=== PATIENT | male | born 1990 ===

== ENCOUNTER 2018-12-04 11:18 | Emergency (ER) | payer SELFPAY ==
[2018-12-04 11:34] VITALS: BMI 29.7
--- NOTE | 2018-12-04 11:57 | ED PDOC ---
Arrival/HPI - General Historian: Patient, Police - History of Present Illness Narrative History of Present Illness (Text): 12/04/18 11:37 28 year old Male with no significant PMH presents to the emergency department brought in by [employer] after they [place]. Patient denies any suicidal or homicidal ideation. Patient exhibits bizarre behavior at bedside. He endorses smoking marijuana. Patient denies any fevers, chills, headache, dizziness, chest pain, shortness of breath, dyspnea on exertion, cough, abdominal pain, nausea, vomiting, diarrhea, back pain, neck pain, or any other complaints. Time/Duration: Prior to Arrival Symptom Onset: Gradual Activities at Onset: Other (Running) Context: Other (Lightrail tracks) <Lacey Washburn - Last Filed: 12/05/18 00:27> <Lopez Walker - Last Filed: 12/05/18 04:32> - General Chief Complaint: Psychiatric Evaluation Time Seen by Provider: 12/04/18 11:21 Past Medical History - Provider Review Nursing Documentation Reviewed: Yes - Infectious Disease Hx of Infectious Diseases: None - Cardiac Hx Hypertension: No - Pulmonary Hx Tuberculosis: No - Neurological Hx Seizures: No - Hematological/Oncological Hx Cancer: No - Genitourinary/Gynecological Hx Sexually Transmitted Diseases: No - Psychiatric Hx Substance Use: Yes - Anesthesia Hx Anesthesia: No Hx Anesthesia Reactions: No Hx Malignant Hyperthermia: No <Lacey Washburn - Last Filed: 12/05/18 00:27> Family/Social History - Physician Review Nursing Documentation Reviewed: Yes Family/Social History: Unknown Family HX Smoking Status: Heavy Smoker > 10 Cigarettes Daily Hx Alcohol Use: Yes Hx Substance Use: Yes Substance used: Marijuana <Lacey Washburn - Last Filed: 12/05/18 00:27> Allergies/Home Meds <Lacey Washburn - Last Filed: 12/05/18 00:27> <Lopez Walker - Last Filed: 12/05/18 04:32> Allergies/Adverse Reactions: Allergies No Known Allergies Allergy (Verified 06/21/16 20:14) Home Medications: Home Meds Medication Instructions Recorded Confirmed Unobtainable 08/19/16 12/05/18 Review of Systems - Physician Review All systems were reviewed & negative as marked: Yes - Review of Systems Constitutional: absent: Fevers Respiratory: absent: SOB, Cough Cardiovascular: absent: Chest Pain Gastrointestinal: absent: Abdominal Pain, Diarrhea, Nausea, Vomiting Genitourinary Male: absent: Dysuria, Urinary Output Changes Musculoskeletal: absent: Back Pain, Neck Pain Skin: absent: Rash Neurological: absent: Headache, Dizziness Psychiatric: absent: Anxiety, Suicidal Ideation <Lacey Washburn - Last Filed: 12/05/18 00:27> Physical Exam Vital Signs Reviewed: Yes Vital Signs Temp Pulse Resp BP Pulse Ox 12/04/18 11:34 98.8 F 108 H 16 141/77 100 Temperature: Afebrile Blood Pressure: Normal Pulse: Regular Respiratory Rate: Normal Appearance: Positive for: Well-Appearing, Non-Toxic, Comfortable Pain Distress: None Mental Status: Positive for: Alert and Oriented X 3 - Systems Exam Head: Present: Atraumatic, Normocephalic Extroacular Muscles: Present: EOMI Conjunctiva: Present: Normal Mouth: Present: Moist Mucous Membranes Respiratory/Chest: Present: Clear to Auscultation, Good Air Exchange. No: Respiratory Distress, Accessory Muscle Use Cardiovascular: Present: Regular Rate and Rhythm, Normal S1, S2. No: Murmurs Abdomen: No: Tenderness, Distention, Peritoneal Signs Upper Extremity: Present: Normal Inspection. No: Cyanosis, Edema Lower Extremity: Present: Normal Inspection. No: Edema Neurological: Present: GCS=15, Speech Normal Skin: Present: Warm, Dry, Normal Color. No: Rashes Psychiatric: Present: Alert, Oriented x 3, Other (bizarre behavior ) <Lacey Washburn - Last Filed: 12/05/18 00:27> Vital Signs Temp Pulse Resp BP Pulse Ox 12/04/18 16:58 98.2 F 89 20 142/88 100 12/04/18 11:34 98.8 F 108 H 16 141/77 100 <Lopez Walker - Last Filed: 12/05/18 04:32> Medical Decision Making ED Course and Treatment: 12/04/18 13:49 Patient is nontoxic well-appearing in no distress vital signs are stable. CBC Wbc:11.4 CMP WNL Tylenol WNL Salicylate WNL Alcohol level WNL Urine drug screen + marijuana UA; wnl ekg: Sinus rhythm with sinus arrhythmia at 77 bpm normal axis no ST elevations QTC 396 pt is medically cleared for PES evaluation/ psychiatric transfer/admission Patient was seen and evaluated by PES screener: christina 12/04/18 13:27 Patient became agitated in the ER and was trying to elope from the ER. Patient was sedated with Haldol and Ativan. Restraints were ordered. After medications the patient became more cooperative and did not need to be restrained. 12/04/18 17:15 Patient reassessment: Patient resting comfortably no distress with stable vital signs 12/04/18 19:22 Patient is awake and again agitated spitting at staff. 5 Haldol and 2 of Ativan ordered. restraints ordered. plan discussed with dr. walker. restraints were removed shortly after haldol and ativan given and patient non threatening. 12/04/18 21:46 pt sleeping; no distress. vitals stable. 12/04/18 22:57 pt reassessment; pt sleeping; no distress. 12/05/18 00:27 pt reassessment; sleeping; no distress. case signed out to dr. walker pending [facility] eval, re-eval and disposition. <Lacey Washburn T - Last Filed: 12/05/18 00:27> ED Course and Treatment: 12/05/18 02:01 [facility] screener present in Emergency department. States pt is too difficult to arouse to properly evaluate at this time. States [facility] screeners will return at a later time to evaluate when pt is awake/alert. 12/05/18 07:00 Case endorsed to /pending [facility] screener evaluation/final disposition - Lab Interpretations Lab Results: Total Bilirubin 0.3 mg/dL (0.2-1.3) 12/04/18 11:40 AST 44 U/L (17-59) 12/04/18 11:40 ALT 25 U/L (7-56) 12/04/18 11:40 Alkaline Phosphatase 59 U/L (38-126) 12/04/18 11:40 Total Protein 8.3 g/dL (5.8-8.3) 12/04/18 11:40 Albumin 4.6 g/dL (3.0-4.8) 12/04/18 11:40 Globulin 3.7 gm/dL 12/04/18 11:40 Albumin/Globulin Ratio 1.3 (1.1-1.8) 12/04/18 11:40 Urine Color Yellow (YELLOW) 12/04/18 13:05 Urine Appearance Clear (CLEAR) 12/04/18 13:05 Urine pH 6.5 (4.7-8.0) 12/04/18 13:05 Ur Specific [place] 1.020 (1.005-1.035) 12/04/18 13:05 Urine Protein Trace mg/dL (<30 mg/dL) H 12/04/18 13:05 Urine Glucose (UA) Negative mg/dL (NEGATIVE) 12/04/18 13:05 Urine Ketones Negative mg/dL (NEGATIVE) 12/04/18 13:05 Urine Blood Negative (NEGATIVE) 12/04/18 13:05 Urine Nitrate Negative (NEGATIVE) 12/04/18 13:05 Urine Bilirubin Negative (NEGATIVE) 12/04/18 13:05 Urine Urobilinogen 0.2 E.U./dL (<1 E.U./dL) 12/04/18 13:05 Ur Leukocyte Esterase Negative Roni/uL (NEGATIVE) 12/04/18 13:05 Urine RBC 0 - 2 /hpf (0-2) 12/04/18 13:05 Urine WBC 1 - 3 /hpf (0-6) 12/04/18 13:05 Ur Epithelial Cells None /hpf (0-5) 12/04/18 13:05 Urine Bacteria Few /hpf (NONE) 12/04/18 13:05 - RAD Interpretation Radiology Orders: 12/04/18 13:51 CHEST PORTABLE [RAD] Stat - Medication Orders Current Medication Orders: Discontinued Medications Haloperidol Lactate (Haldol) 5 mg IM STAT STA; Protocol Stop: 12/04/18 13:28 Last Admin: 12/04/18 13:42 Dose: 5 mg IM Administration Charges Document 12/04/18 13:42 EQ (Rec: 12/04/18 13:42 EQ [id number]) Injection Site MAR Injection Site Left Deltoid Charges for Administration # of IM Administrations 1 Haloperidol Lactate (Haldol) 5 mg IM STAT STA; Protocol Stop: 12/04/18 19:22 Last Admin: 12/04/18 19:36 Dose: 5 mg IM Administration Charges Document 12/04/18 19:36 AD (Rec: 12/04/18 19:36 AD [id number]) Injection Site MAR Injection Site Left Deltoid Charges for Administration # of IM Administrations 1 Lorazepam (Ativan) 2 mg IM ONCE ONE; Protocol Stop: 12/04/18 13:28 Last Admin: 12/04/18 13:41 Dose: 2 mg IM Administration Charges Document 12/04/18 13:41 EQ (Rec: 12/04/18 13:42 EQ [id number]) Injection Site MAR Injection Site Left Deltoid Charges for Administration # of IM Administrations 1 Lorazepam (Ativan) 2 mg IM ONCE ONE; Protocol Stop: 12/04/18 19:22 Last Admin: 12/04/18 19:36 Dose: 2 mg IM Administration Charges Document 12/04/18 19:36 AD (Rec: 12/04/18 19:36 AD [id number]) Injection Site MAR Injection Site Right Deltoid Charges for Administration # of IM Administrations 1 <Lopez Walker - Last Filed: 12/05/18 04:32> - PA / [employer] / Resident Statement SHERINE has reviewed & agrees with the documentation as recorded. - Scribe Statement The provider has reviewed the documentation as recorded by the Qasim Conteh training with Lazaro. All medical record entries made by the Thompsonibbruce were at my direction and personally dictated by me. I have reviewed the chart and agree that the record accurately reflects my personal performance of the history, physical exam, medical decision making, and the department course for this patient. I have also personally directed, reviewed, and agree with the discharge instructions and disposition. <Lacey Washburn - Last Filed: 12/05/18 00:27> - PA / [employer] / Resident Statement SHERINE has reviewed & agrees with the documentation as recorded. SHERINE has examined the patient and agrees with the treatment plan. <Lopez Walker - Last Filed: 12/05/18 04:32> Disposition/Present on Arrival - Present on Arrival Any Indicators Present on Arrival: No History of DVT/PE: No History of Uncontrolled Diabetes: No Urinary Catheter: No History of Decub. Ulcer: No History Surgical Site Infection Following: None - Disposition Have Diagnosis and Disposition been Completed?: Yes Disposition Time: 00:29 <Lacey Washburn - Last Filed: 12/05/18 00:27> - Present on Arrival Any Indicators Present on Arrival: No - Disposition Have Diagnosis and Disposition been Completed?: No Disposition Time: 07:00 <Lopez Walker - Last Filed: 12/05/18 04:32> - Disposition Diagnosis: Bipolar 1 disorder Condition: STABLE Forms: As Seen on TV (Tajik)
[2018-12-04 11:58] LABS: BASO # 0.04 K/mm3 (0.0-2.0); BASO % 0.3 % (0.0-3.0); EOS # 0.2 (0.0-0.7); EOS % 1.5 % (1.5-5.0); HEMOGLOBIN 13.8 g/dL (14.0-18.0); LYMPH # 3.1 (1.2-3.4); LYMPH % 27.3 % (22.0-35.0); MEAN CELL VOLUME 87.3 fl (80.0-105.0); MEAN CORPUSCULAR HEMOGLOBIN 28.2 pg (25.0-35.0); MEAN CORPUSCULAR HGB CONC 32.3 g/dl (31.0-37.0); MEAN PLATELET VOLUME 9.4 fl (7.0-11.0); MONO # 0.9 (0.1-0.6); MONO % 7.7 % (1.0-6.0); RBC 4.89 10^6/uL (3.5-6.1); RED CELL DISTRIBUTION WIDTH 13.9 % (11.5-14.5); WHITE BLOOD COUNT 11.4 10^3/uL (4.5-11.0)
[2018-12-04 12:03] LABS: ACETAMINOPHEN < 10.0 ug/ml (10.0-20.0); ALB/GLOB RATIO 1.3 (1.1-1.8); ALBUMIN 4.6 g/dL (3.0-4.8); ALT/SGPT 25 U/L (7-56); AST/SGOT 44 U/L (17-59); BLOOD UREA NITROGEN 14 mg/dL (7-21); CALCIUM 10.2 mg/dL (8.4-10.5); GFR NON-AFRICAN AMERICAN > 60; SALICYLATE < 1 mg/dL (2.0-20.0)
[2018-12-04 13:36] LABS: PH,URINE 6.5 (4.7-8.0); URINE APPEARANCE CLEAR (CLEAR); URINE BILIRUBIN NEGATIVE (NEGATIVE); URINE BLOOD NEGATIVE (NEGATIVE); URINE COLOR YELLOW (YELLOW); URINE GLUCOSE (UA) NEGATIVE (NEGATIVE); URINE LEUKOCYTE ESTERASE NEGATIVE Leu/uL (NEGATIVE); URINE PROTEIN TRACE mg/dL (<30 mg/dL); URINE UROBILINOGEN 0.2 E.U./dL (<1 E.U./dL)
[2018-12-04 13:38] LABS: URINE BACTERIA FEW /hpf
[2018-12-04 13:39] LABS: URINE RBC 0 - 2 /hpf (0-2)
[2018-12-04 13:48] LABS: BARBITURATES, UR NEGATIVE (NEGATIVE); BENZODIAZEPINES, UR NEGATIVE (NEGATIVE); OPIATES, UR NEGATIVE (NEGATIVE); PHENCYCLIDINE, UR NEGATIVE (NEGATIVE)
--- NOTE | 2018-12-04 14:31 | RAD ---
Date of service: 12/04/2018 HISTORY: pes eval COMPARISON: 08/19/2016 FINDINGS: LUNGS: No active pulmonary disease. PLEURA: No significant pleural effusion identified, no pneumothorax apparent. CARDIOVASCULAR: No atherosclerotic calcification present Normal. OSSEOUS STRUCTURES: No significant abnormalities. VISUALIZED UPPER ABDOMEN: Normal. OTHER FINDINGS: None. IMPRESSION: No active disease.
--- NOTE | 2018-12-04 23:00 | CARD ---
APPROVED REPORT Date of service: 12/04/2018 EKG Measurement Heart [id number] <Conclusion> Sinus rhythm with marked sinus arrhythmia Otherwise normal ECG
--- NOTE | 2018-12-05 07:12 | ED PDOC ---
Physical Exam - Physical Exam Narrative Physical Exam (Text): 12/05/18 07:11 Patient signed out to me by Dr. Heredia. Pending [facility] screening. Pt has been medically cleared. Vital Signs Temp Pulse Resp BP Pulse Ox 12/05/18 06:22 79 18 137/64 100 12/05/18 01:30 89 18 132/72 100 12/04/18 21:28 97.8 F 52 L 18 115/70 100 12/04/18 16:58 98.2 F 89 20 142/88 100 12/04/18 11:34 98.8 F 108 H 16 141/77 100 <Mark Soto - Last Filed: 12/05/18 18:46> Vital Signs Temp Pulse Resp BP Pulse Ox 12/05/18 16:00 98.2 F 82 18 129/59 L 99 12/05/18 12:00 72 16 118/66 99 12/05/18 08:00 66 18 129/78 99 12/05/18 06:22 79 18 137/64 100 12/05/18 01:30 89 18 132/72 100 12/04/18 21:28 97.8 F 52 L 18 115/70 100 12/04/18 16:58 98.2 F 89 20 142/88 100 12/04/18 11:34 98.8 F 108 H 16 141/77 100 <Juan Flanagan - Last Filed: 12/05/18 21:12> Medical Decision Making ED Course and Treatment: 12/05/18 18:46 Patient signed out to Dr. Flanagan who will resume the case. - Lab Interpretations Lab Results: Total Bilirubin 0.3 mg/dL (0.2-1.3) 12/04/18 11:40 AST 44 U/L (17-59) 12/04/18 11:40 ALT 25 U/L (7-56) 12/04/18 11:40 Alkaline Phosphatase 59 U/L (38-126) 12/04/18 11:40 Total Protein 8.3 g/dL (5.8-8.3) 12/04/18 11:40 Albumin 4.6 g/dL (3.0-4.8) 12/04/18 11:40 Globulin 3.7 gm/dL 12/04/18 11:40 Albumin/Globulin Ratio 1.3 (1.1-1.8) 12/04/18 11:40 Urine Color Yellow (YELLOW) 12/04/18 13:05 Urine Appearance Clear (CLEAR) 12/04/18 13:05 Urine pH 6.5 (4.7-8.0) 12/04/18 13:05 Ur Specific [place] 1.020 (1.005-1.035) 12/04/18 13:05 Urine Protein Trace mg/dL (<30 mg/dL) H 12/04/18 13:05 Urine Glucose (UA) Negative mg/dL (NEGATIVE) 12/04/18 13:05 Urine Ketones Negative mg/dL (NEGATIVE) 12/04/18 13:05 Urine Blood Negative (NEGATIVE) 12/04/18 13:05 Urine Nitrate Negative (NEGATIVE) 12/04/18 13:05 Urine Bilirubin Negative (NEGATIVE) 12/04/18 13:05 Urine Urobilinogen 0.2 E.U./dL (<1 E.U./dL) 12/04/18 13:05 Ur Leukocyte Esterase Negative Roni/uL (NEGATIVE) 12/04/18 13:05 Urine RBC 0 - 2 /hpf (0-2) 12/04/18 13:05 Urine WBC 1 - 3 /hpf (0-6) 12/04/18 13:05 Ur Epithelial Cells None /hpf (0-5) 12/04/18 13:05 Urine Bacteria Few /hpf (NONE) 12/04/18 13:05 - RAD Interpretation Narrative RAD Interpretations (Text): 12/04/18 14:28 Reviewed Chest X-Ray, shows: FINDINGS: LUNGS: No active pulmonary disease. PLEURA: No significant pleural effusion identified, no pneumothorax apparent. CARDIOVASCULAR: No atherosclerotic calcification present Normal. OSSEOUS STRUCTURES: No significant abnormalities. VISUALIZED UPPER ABDOMEN: Normal. OTHER FINDINGS: None. IMPRESSION: No active disease. Radiology Orders: 12/04/18 13:51 CHEST PORTABLE [RAD] Stat Millinery Copyist: Radiologist - Medication Orders Current Medication Orders: Discontinued Medications Haloperidol Lactate (Haldol) 5 mg IM STAT STA; Protocol Stop: 12/04/18 13:28 Last Admin: 12/04/18 13:42 Dose: 5 mg IM Administration Charges Document 12/04/18 13:42 EQ (Rec: 12/04/18 13:42 EQ [id number]) Injection Site MAR Injection Site Left Deltoid Charges for Administration # of IM Administrations 1 Haloperidol Lactate (Haldol) 5 mg IM STAT STA; Protocol Stop: 12/04/18 19:22 Last Admin: 12/04/18 19:36 Dose: 5 mg IM Administration Charges Document 12/04/18 19:36 AD (Rec: 12/04/18 19:36 AD [id number]) Injection Site MAR Injection Site Left Deltoid Charges for Administration # of IM Administrations 1 Lorazepam (Ativan) 2 mg IM ONCE ONE; Protocol Stop: 12/04/18 13:28 Last Admin: 12/04/18 13:41 Dose: 2 mg IM Administration Charges Document 12/04/18 13:41 EQ (Rec: 12/04/18 13:42 EQ [id number]) Injection Site MAR Injection Site Left Deltoid Charges for Administration # of IM Administrations 1 Lorazepam (Ativan) 2 mg IM ONCE ONE; Protocol Stop: 12/04/18 19:22 Last Admin: 12/04/18 19:36 Dose: 2 mg IM Administration Charges Document 12/04/18 19:36 AD (Rec: 12/04/18 19:36 AD [id number]) Injection Site MAR Injection Site Right Deltoid Charges for Administration # of IM Administrations 1 <Mark Soto - Last Filed: 12/05/18 18:46> - Lab Interpretations Lab Results: Total Bilirubin 0.3 mg/dL (0.2-1.3) 12/04/18 11:40 AST 44 U/L (17-59) 12/04/18 11:40 ALT 25 U/L (7-56) 12/04/18 11:40 Alkaline Phosphatase 59 U/L (38-126) 12/04/18 11:40 Total Protein 8.3 g/dL (5.8-8.3) 12/04/18 11:40 Albumin 4.6 g/dL (3.0-4.8) 12/04/18 11:40 Globulin 3.7 gm/dL 12/04/18 11:40 Albumin/Globulin Ratio 1.3 (1.1-1.8) 12/04/18 11:40 Urine Color Yellow (YELLOW) 12/04/18 13:05 Urine Appearance Clear (CLEAR) 12/04/18 13:05 Urine pH 6.5 (4.7-8.0) 12/04/18 13:05 Ur Specific [place] 1.020 (1.005-1.035) 12/04/18 13:05 Urine Protein Trace mg/dL (<30 mg/dL) H 12/04/18 13:05 Urine Glucose (UA) Negative mg/dL (NEGATIVE) 12/04/18 13:05 Urine Ketones Negative mg/dL (NEGATIVE) 12/04/18 13:05 Urine Blood Negative (NEGATIVE) 12/04/18 13:05 Urine Nitrate Negative (NEGATIVE) 12/04/18 13:05 Urine Bilirubin Negative (NEGATIVE) 12/04/18 13:05 Urine Urobilinogen 0.2 E.U./dL (<1 E.U./dL) 12/04/18 13:05 Ur Leukocyte Esterase Negative Roni/uL (NEGATIVE) 12/04/18 13:05 Urine RBC 0 - 2 /hpf (0-2) 12/04/18 13:05 Urine WBC 1 - 3 /hpf (0-6) 12/04/18 13:05 Ur Epithelial Cells None /hpf (0-5) 12/04/18 13:05 Urine Bacteria Few /hpf (NONE) 12/04/18 13:05 - RAD Interpretation Radiology Orders: 12/04/18 13:51 CHEST PORTABLE [RAD] Stat - Medication Orders Current Medication Orders: Lorazepam (Ativan) 2 mg IM Q6 PRN; Protocol PRN Reason: Agitation Ziprasidone (Geodon Inj) 20 mg IM Q6H PRN; Protocol PRN Reason: severe agitaiton/psychosis Discontinued Medications Haloperidol Lactate (Haldol) 5 mg IM STAT STA; Protocol Stop: 12/04/18 13:28 Last Admin: 12/04/18 13:42 Dose: 5 mg IM Administration Charges Document 12/04/18 13:42 EQ (Rec: 12/04/18 13:42 EQ [id number]) Injection Site MAR Injection Site Left Deltoid Charges for Administration # of IM Administrations 1 Haloperidol Lactate (Haldol) 5 mg IM STAT STA; Protocol Stop: 12/04/18 19:22 Last Admin: 12/04/18 19:36 Dose: 5 mg IM Administration Charges Document 12/04/18 19:36 AD (Rec: 12/04/18 19:36 AD [id number]) Injection Site MAR Injection Site Left Deltoid Charges for Administration # of IM Administrations 1 Lorazepam (Ativan) 2 mg IM ONCE ONE; Protocol Stop: 12/04/18 13:28 Last Admin: 12/04/18 13:41 Dose: 2 mg IM Administration Charges Document 12/04/18 13:41 EQ (Rec: 12/04/18 13:42 EQ [id number]) Injection Site MAR Injection Site Left Deltoid Charges for Administration # of IM Administrations 1 Lorazepam (Ativan) 2 mg IM ONCE ONE; Protocol Stop: 12/04/18 19:22 Last Admin: 12/04/18 19:36 Dose: 2 mg IM Administration Charges Document 12/04/18 19:36 AD (Rec: 12/04/18 19:36 AD [id number]) Injection Site MAR Injection Site Right Deltoid Charges for Administration # of IM Administrations 1 <Juan Flanagan - Last Filed: 12/05/18 21:12> Disposition/Present on Arrival - Present on Arrival Any Indicators Present on Arrival: No History of DVT/PE: No History of Uncontrolled Diabetes: No Urinary Catheter: No History of Decub. Ulcer: No History Surgical Site Infection Following: None <Mark Soto - Last Filed: 12/05/18 18:46> - Disposition Have Diagnosis and Disposition been Completed?: Yes Disposition Time: 21:11 - Notes Notes (Text): 12/05/18 21:12 Bed available at [facility], will be transferred. <Juan Flangaan - Last Filed: 12/05/18 21:12> - Disposition Diagnosis: Bipolar 1 disorder Disposition: Transfer [facility] Patient Problems: Current Active Problems Problem Status Onset Bipolar 1 disorder Acute Condition: STABLE Forms: [employer] (Urdu)
[2018-12-05 19:35] VITALS: RESP 18
--- NOTE | 2018-12-05 20:48 | CON ---
DATE OF CONSULTATION: 12/05/2018 HISTORY OF PRESENT ILLNESS: In short, the patient is 28-year-old male with reported history of mental illness, most likely schizophrenia spectrum. The patient was brought in by police after the patient was found frowning on the light rail truck prior to arrival. The patient was exhibiting bizarre and disorganized behavior where he endorsed smoking marijuana. The patient needed to be medicated. This jingle writer suggested involuntary commitment screening. The patient was seen today at the morning time during this jingle writer's morning round in the emergency room. The patient presented to be bizarre, sleepy, does not make much sense. No meaningful conversation possible. As per history, the patient had multiple admissions to the psychiatric inpatient unit, most recently the patient was discharged from [facility] on 10/26/2018. The patient had a history of being bizarre in the community. The patient was admitted for touching and wrapping his arm around stranger females in the mall. The patient also had involuntary commitment in the past. PHYSICAL EXAMINATION: VITAL SIGNS: Reviewed. Most recent pulse is 72, blood pressure 118/66, respirations 16, oxygen saturation is 99. MEDICATIONS: Reviewed. The patient got haloperidol IM as well as Ativan too and it was yesterday at 07:36. LABORATORY DATA: Labs reviewed. Chemistries reviewed. Toxicology was positive for cannabis. MENTAL STATUS EXAMINATION: The patient presented to be sleepy, easily arousable, but the patient presented to be disorganized. No meaningful conversation possible. The patient appears to be psychotic, paranoid, and delusional. Insight and judgment very impaired. Impulses are not predictable. IMPRESSION: Most likely, the patient has schizophrenia spectrum disorder, rule out schizoaffective bipolar type, marijuana abuse. PLAN: The patient was screened by [facility]. At present moment, the patient is waiting for bed to be available for involuntary commitment. This jingle writer recommended Geodon and Ativan as needed for agitation, high elopement risk. The patient poses imminent danger to self or others. Should you have any questions give me a call back. Brooke Zuluaga MD [facility] # [phone]
[2018-12-05 21:20] VITALS: O2SAT 100
[2018-12-05 22:33] VITALS: BP 135/78; PULSE 87; TEMP 97.6
== END 2018-12-05 22:40 | disposition short-term general hospital (02) ==
LOC: ED 11:18
DX: F31.9 Bipolar disorder, unspecified (principal); F12.90 Cannabis use, unspecified, uncomplicated; F17.210 Nicotine dependence, cigarettes, uncomplicated
CPT/HCPCS: 71045; 80053; 81001; 85025; 90791; 93005; 96372; 99285; G0480; J1630; J2060

== ENCOUNTER 2019-01-12 04:31 | Emergency (ER) | payer MEDICAID ==
[2019-01-12 04:33] VITALS: BMI 29.6
[2019-01-12 04:41] VITALS: TEMP 98.5
--- NOTE | 2019-01-12 04:51 | ED PDOC ---
Arrival/HPI - General Chief Complaint: Lower Extremity Problem/Injury Historian: Patient, EMS - History of Present Illness Narrative History of Present Illness (Text): 01/12/19 04:50 Buddy Abdi is a 28 year old male, whose past medical history includes bipolar disorder, who presents to the Emergency department brought in by EMS for foot discomfort. Patient was found wandering outside by EMS and brought in by EMS. Patient reports bilateral foot discomfort. Patient denies any fever, chills, decreased range of motion, weakness/numbness/tingling in the extremity, or any other complaints. Symptom Onset: Gradual Symptom Course: Unchanged Activities at Onset: Light Context: Walking, Street Past Medical History - Provider Review Nursing Documentation Reviewed: Yes - Infectious Disease Hx of Infectious Diseases: None - Cardiac Hx Hypertension: No - Pulmonary Hx Tuberculosis: No - Neurological Hx Seizures: No - HEENT Hx HEENT Disorder: No - Renal Hx Renal Disorder: No - Endocrine/Metabolic Hx Endocrine Disorders: No - Hematological/Oncological Hx Blood Disorders: No Hx Cancer: No - Integumentary Hx Dermatological Disorder: No - Musculoskeletal/Rheumatological Hx Musculoskeletal Disorders: No - Gastrointestinal Hx Gastrointestinal Disorders: No - Genitourinary/Gynecological Hx Genitourinary Disorders: No Hx Sexually Transmitted Diseases: No - Psychiatric Hx Depression: Yes Hx Substance Use: Yes - Anesthesia Hx Anesthesia: No Hx Anesthesia Reactions: No Hx Malignant Hyperthermia: No Family/Social History - Physician Review Nursing Documentation Reviewed: Yes Family/Social History: Unknown Family HX Smoking Status: Heavy Smoker > 10 Cigarettes Daily Hx Alcohol Use: Yes Hx Substance Use: Yes Substance used: Marijuana Allergies/Home Meds Allergies/Adverse Reactions: Allergies No Known Allergies Allergy (Verified 01/12/19 04:34) Review of Systems - Physician Review All systems were reviewed & negative as marked: Yes - Review of Systems Constitutional: Normal. absent: Fevers Eyes: Normal ENT: Normal Respiratory: Normal. absent: SOB, Cough Cardiovascular: Normal. absent: Chest Pain Gastrointestinal: Normal. absent: Abdominal Pain, Diarrhea, Nausea, Vomiting Genitourinary Male: Normal. absent: Dysuria, Hematuria Musculoskeletal: Normal. absent: Back Pain, Neck Pain Skin: Normal. absent: Rash Neurological: Normal. absent: Headache, Dizziness Endocrine: Normal Hemo/Lymphatic: Normal Psychiatric: Normal Physical Exam Vital Signs Reviewed: Yes Vital Signs Temp Pulse Resp BP Pulse Ox 01/12/19 04:41 98.5 F 70 18 118/75 99 Temperature: Afebrile Blood Pressure: Normal Pulse: Regular Respiratory Rate: Normal Appearance: Positive for: Well-Appearing, Non-Toxic, Comfortable Pain Distress: None Mental Status: Positive for: Alert and Oriented X 3 - Systems Exam Head: Present: Atraumatic, Normocephalic Pupils: Present: PERRL Extroacular Muscles: Present: EOMI Conjunctiva: Present: Normal Mouth: Present: Moist Mucous Membranes Neck: Present: Normal Range of Motion Respiratory/Chest: Present: Clear to Auscultation, Good Air Exchange. No: Respiratory Distress, Accessory Muscle Use Cardiovascular: Present: Regular Rate and Rhythm, Normal S1, S2. No: Murmurs Abdomen: No: Tenderness, Distention, Peritoneal Signs Back: Present: Normal Inspection Upper Extremity: Present: Normal Inspection. No: Cyanosis, Edema Lower Extremity: Present: Normal Inspection. No: Edema Neurological: Present: GCS=15, CN II-XII Intact, Speech Normal Skin: Present: Warm, Dry, Normal Color. No: Rashes Psychiatric: Present: Alert, Oriented x 3, Normal Insight, Normal Concentration Medical Decision Making ED Course and Treatment: 01/12/19 04:50 Impression: 28 year old male bought in by EMS complaining of bilateral foot discomfort. Plan: -- Reassess and disposition Prior Visits: Notes and results from previous visits were reviewed. Progress Notes: - Transfer of Care Patient signed out to Dr:: ramon lockhart - Scribe Statement The provider has reviewed the documentation as recorded by the Scribbruce Clayton All medical record entries made by the Scribbruce were at my direction and personally dictated by me. I have reviewed the chart and agree that the record accurately reflects my personal performance of the history, physical exam, medical decision making, and the department course for this patient. I have also personally directed, reviewed, and agree with the discharge instructions and disposition. Disposition/Present on Arrival - Present on Arrival Any Indicators Present on Arrival: No History of DVT/PE: No History of Uncontrolled Diabetes: No Urinary Catheter: No History of Decub. Ulcer: No History Surgical Site Infection Following: None - Disposition Have Diagnosis and Disposition been Completed?: Yes Diagnosis: Foot pain Disposition: HOME/ ROUTINE Disposition Time: 07:00 Condition: STABLE Discharge Instructions (ExitCare): Metatarsalgia (DC) Print Language: ERITREAN Additional Instructions: Please follow up with the street vendor listed in your discharge paperwork Prescriptions: Cyclobenzaprine [Cyclobenzaprine HCl] 10 mg PO Q6H #10 tab Naproxen 500 mg PO BID #10 tab Referrals: Velasquez Devlin DPM [Staff Provider] - Follow up with primary Forms: [employer] (Malagasy), WORK NOTE
--- NOTE | 2019-01-12 06:52 | ED PDOC ---
Physical Exam Vital Signs Temp Pulse Resp BP Pulse Ox 01/12/19 04:41 98.5 F 70 18 118/75 99 Medical Decision Making ED Course and Treatment: 01/12/19 06:[address] Garcia with patient pending reevaluation. Disposition/Present on Arrival - Present on Arrival Any Indicators Present on Arrival: No History of DVT/PE: No History of Uncontrolled Diabetes: No Urinary Catheter: No History of Decub. Ulcer: No History Surgical Site Infection Following: None - Disposition Have Diagnosis and Disposition been Completed?: Yes Diagnosis: Foot pain Disposition: HOME/ ROUTINE Disposition Time: 08:06 Patient Plan: Discharge Condition: STABLE Discharge Instructions (ExitCare): Metatarsalgia (DC) Print Language: ICELANDIC Additional Instructions: Please follow up with the electronic typesetting machine operator listed in your discharge paperwork Prescriptions: Cyclobenzaprine [Cyclobenzaprine HCl] 10 mg PO Q6H #10 tab Naproxen 500 mg PO BID #10 tab Referrals: Velasquez Devlin DPM [Staff Provider] - Follow up with primary Forms: [employer] [facility] (Croatian), WORK NOTE
[2019-01-12 08:30] VITALS: BP 105/57; PULSE 57; RESP 16; O2SAT 100
== END 2019-01-12 08:39 | disposition home or self-care (01) ==
LOC: ED 04:31
DX: M79.671 Pain in right foot (principal); M79.672 Pain in left foot
CPT/HCPCS: 96372; 99284; J1885

== ENCOUNTER 2019-02-04 12:49 | Inpatient (IN) | payer MEDICAID ==
[2019-02-04 13:08] VITALS: BMI 26.6
[2019-02-04 13:54] LABS: BASO # 0.03 K/mm3 (0.0-2.0); BASO % 0.4 % (0.0-3.0); EOS # 0.2 (0.0-0.7); EOS % 2.7 % (1.5-5.0); HEMOGLOBIN 13.4 g/dL (14.0-18.0); LYMPH # 2.2 (1.2-3.4); LYMPH % 29.8 % (22.0-35.0); MEAN CORPUSCULAR HEMOGLOBIN 28.4 pg (25.0-35.0); MEAN PLATELET VOLUME 9.7 fl (7.0-11.0); MONO # 0.6 (0.1-0.6); RBC 4.72 10^6/uL (3.5-6.1); RED CELL DISTRIBUTION WIDTH 12.7 % (11.5-14.5); WHITE BLOOD COUNT 7.3 10^3/uL (4.5-11.0)
[2019-02-04 13:56] LABS: ALB/GLOB RATIO 1.3 (1.1-1.8); ALBUMIN 4.3 g/dL (3.0-4.8); ALT/SGPT 18 U/L (7-56); AST/SGOT 31 U/L (17-59); BLOOD UREA NITROGEN 10 mg/dL (7-21); CALCIUM 9.6 mg/dL (8.4-10.5); GFR NON-AFRICAN AMERICAN > 60
[2019-02-04 13:57] LABS: ACETAMINOPHEN < 10.0 ug/ml (10.0-20.0); SALICYLATE < 1 mg/dL (2.0-20.0)
--- NOTE | 2019-02-04 14:22 | ED PDOC ---
Arrival/HPI - General Historian: Patient, Police - History of Present Illness Narrative History of Present Illness (Text): 02/04/19 14:19 28-year-old male with a history of bipolar disorder presents today brought in by ambulance and police for substance abuse. Patient admits to using PCP. Patient was brought in by police after being removed from an auto store for trying to drink what the patient says was gasoline. Patient states he was trying to drink gasoline because he wanted to explode. Patient denies any pain. Patient denies drinking any gasoline or any other fluid because he states "they stopped me". <Lacey Washburn - Last Filed: 02/04/19 19:26> <Ludivina Franz - Last Filed: 02/04/19 22:17> - General Chief Complaint: Substance Abuse Time Seen by Provider: 02/04/19 12:54 Past Medical History - Provider Review Nursing Documentation Reviewed: Yes - Travel History Have you recently traveled outside [place] w/in the past 3 mons?: No - Infectious Disease Hx of Infectious Diseases: None - Cardiac Hx Hypertension: No - Pulmonary Hx Tuberculosis: No - Neurological Hx Seizures: No - HEENT Hx HEENT Disorder: No - Renal Hx Renal Disorder: No - Endocrine/Metabolic Hx Endocrine Disorders: No - Hematological/Oncological Hx Blood Disorders: No Hx Cancer: No - Integumentary Hx Dermatological Disorder: No - Musculoskeletal/Rheumatological Hx Musculoskeletal Disorders: No - Gastrointestinal Hx Gastrointestinal Disorders: No - Genitourinary/Gynecological Hx Genitourinary Disorders: No Hx Sexually Transmitted Diseases: No - Psychiatric Hx Depression: Yes Hx Substance Use: Yes - Anesthesia Hx Anesthesia: No Hx Anesthesia Reactions: No Hx Malignant Hyperthermia: No <Lacey Washburn - Last Filed: 02/04/19 19:26> Family/Social History - Physician Review Nursing Documentation Reviewed: Yes Family/Social History: Unknown Family HX Smoking Status: Heavy Smoker > 10 Cigarettes Daily Hx Alcohol Use: Yes Hx Substance Use: Yes Substance used: Marijuana <Lacey Washburn - Last Filed: 02/04/19 19:26> Allergies/Home Meds <Lacey Washburn - Last Filed: 02/04/19 19:26> <Ludivina Franz - Last Filed: 02/04/19 22:17> Allergies/Adverse Reactions: Allergies No Known Allergies Allergy (Verified 01/12/19 04:34) Review of Systems - Review of Systems Systems not reviewed;Unavailable: Other (substance abuse) Constitutional: absent: Fatigue, Fevers Respiratory: absent: SOB, Cough Cardiovascular: absent: Chest Pain, Palpitations Gastrointestinal: absent: Abdominal Pain, Nausea, Vomiting Musculoskeletal: absent: Arthralgias Psychiatric: Suicidal Ideation <Lacey Washburn T - Last Filed: 02/04/19 19:26> Physical Exam Vital Signs Reviewed: Yes Vital Signs Temp Pulse Resp BP Pulse Ox 02/04/19 13:09 98.2 F 99 H 17 141/95 H 99 Temperature: Afebrile Blood Pressure: Hypertensive Pulse: Tachycardic Respiratory Rate: Normal Appearance: Positive for: Well-Appearing, Non-Toxic, Comfortable Pain Distress: None Mental Status: Positive for: Alert and Oriented X 3 Finger Stick Blood Glucose: 145 - Systems Exam Head: Present: Atraumatic Mouth: Present: Moist Mucous Membranes Neck: Present: Normal Range of Motion Respiratory/Chest: Present: Clear to Auscultation, Good Air Exchange. No: Respiratory Distress, Accessory Muscle Use Cardiovascular: Present: Regular Rate and Rhythm, Normal S1, S2. No: Murmurs Abdomen: No: Tenderness, Distention, Peritoneal Signs, Rebound, Guarding Back: Present: Normal Inspection Upper Extremity: Present: Normal ROM Lower Extremity: Present: Normal ROM Neurological: Present: GCS=15, Speech Normal Skin: Present: Warm, Dry, Normal Color Psychiatric: Present: Alert, Suicidal Ideation <Lacey Washburn T - Last Filed: 02/04/19 19:26> Vital Signs Temp Pulse Resp BP Pulse Ox 02/04/19 17:43 88 16 150/76 97 02/04/19 13:09 98.2 F 99 H 17 141/95 H 99 <Ludivina Franz M - Last Filed: 02/04/19 22:17> Medical Decision Making ED Course and Treatment: 02/04/19 14:23 Patient presenting with Bizarre behavior. admits to PCP use. CBC WNL CMP glucose; 145 Tylenol WNL Salicylate WNL Alcohol level WNL Urine drug screen pending UA; pending cxr: wnl ekg: Normal sinus rhythm at [address] elevations QTC 420 PEs physical therapy nurse to see patient. Pt sleeping, unable to get evaluation. pt has not urinated yet. 02/04/19 19:27 pt reassessment; pt awake; still with bizarre behavior/statements; saying " bring me to the [facility]". case signed out to dr. montoya pending URINE and PES evaluation. - Lab Interpretations Lab Results: Total Bilirubin 0.3 mg/dL (0.2-1.3) 02/04/19 13:30 AST 31 U/L (17-59) 02/04/19 13:30 ALT 18 U/L (7-56) 02/04/19 13:30 Alkaline Phosphatase 53 U/L (38-126) 02/04/19 13:30 Total Protein 7.7 g/dL (5.8-8.3) 02/04/19 13:30 Albumin 4.3 g/dL (3.0-4.8) 02/04/19 13:30 Globulin 3.4 gm/dL 02/04/19 13:30 Albumin/Globulin Ratio 1.3 (1.1-1.8) 02/04/19 13:30 - RAD Interpretation Radiology Orders: 02/04/19 13:35 CHEST PORTABLE [RAD] Stat <Lacey Washburn - Last Filed: 02/04/19 19:26> ED Course and Treatment: 02/04/19 19:30 Case endorsed to me by BON Washburn, pending urine and PES evaluation. 02/04/19 22:10 Patient medically cleared, evaluated by PES, accepted for admission for schizophrenia under Dr. Zuluaga. - Lab Interpretations Lab Results: Total Bilirubin 0.3 mg/dL (0.2-1.3) 02/04/19 13:30 AST 31 U/L (17-59) 02/04/19 13:30 ALT 18 U/L (7-56) 02/04/19 13:30 Alkaline Phosphatase 53 U/L (38-126) 02/04/19 13:30 Total Protein 7.7 g/dL (5.8-8.3) 02/04/19 13:30 Albumin 4.3 g/dL (3.0-4.8) 02/04/19 13:30 Globulin 3.4 gm/dL 02/04/19 13:30 Albumin/Globulin Ratio 1.3 (1.1-1.8) 02/04/19 13:30 Urine Color yellow (YELLOW) 02/04/19 19:30 Urine Appearance Clear (CLEAR) 02/04/19 19:30 Urine pH 6.0 (4.7-8.0) 02/04/19 19:30 Ur Specific Tyler 1.025 (1.005-1.035) 02/04/19 19:30 Urine Protein Negative mg/dL (<30 mg/dL) 02/04/19 19:30 Urine Glucose (UA) Negative mg/dL (NEGATIVE) 02/04/19 19:30 Urine Ketones Negative mg/dL (NEGATIVE) 02/04/19 19:30 Urine Blood Negative (NEGATIVE) 02/04/19 19:30 Urine Nitrate Negative (NEGATIVE) 02/04/19 19:30 Urine Bilirubin Negative (NEGATIVE) 02/04/19 19:30 Urine Urobilinogen 0.2 E.U./dL (<1 E.U./dL) 02/04/19 19:30 Ur Leukocyte Esterase Negative Roni/uL (NEGATIVE) 02/04/19 19:30 - RAD Interpretation Radiology Orders: 02/04/19 13:35 CHEST PORTABLE [RAD] Stat <Ludivina Franz - Last Filed: 02/04/19 22:17> Disposition/Present on Arrival - Present on Arrival Any Indicators Present on Arrival: No History of DVT/PE: No History of Uncontrolled Diabetes: No Urinary Catheter: No History of Decub. Ulcer: No History Surgical Site Infection Following: None - Disposition Have Diagnosis and Disposition been Completed?: Yes Disposition Time: 19:28 <Lacey Washburn T - Last Filed: 02/04/19 19:26> <Ludivina Franz - Last Filed: 02/04/19 22:17> - Disposition Diagnosis: Drug use, Schizophrenia Disposition: HOSPITALIZED Patient Problems: Current Active Problems Problem Status Onset Drug use Acute Condition: STABLE Forms: [employer] (Argentine)
--- NOTE | 2019-02-04 15:17 | RAD ---
Date of service: 02/04/2019 HISTORY: pes eval COMPARISON: 12/04/2018 TECHNIQUE: 1 view obtained. FINDINGS: LUNGS: No active pulmonary disease. PLEURA: No significant pleural effusion identified, no pneumothorax apparent. CARDIOVASCULAR: No aortic atherosclerotic calcification present. Normal cardiac size. No pulmonary vascular congestion. OSSEOUS STRUCTURES: No significant abnormalities. VISUALIZED UPPER ABDOMEN: Normal. OTHER FINDINGS: None. IMPRESSION: No active disease.
--- NOTE | 2019-02-04 17:49 | CARD ---
APPROVED REPORT Date of service: 02/04/2019 EKG Measurement Heart [id number] <Conclusion> Normal sinus rhythm Minimal voltage criteria for LVH, may be normal variant Nonspecific T wave abnormality Abnormal ECG
[2019-02-04 19:47] LABS: URINE BILIRUBIN NEGATIVE (NEGATIVE); URINE BLOOD NEGATIVE (NEGATIVE); URINE GLUCOSE (UA) NEGATIVE (NEGATIVE); URINE LEUKOCYTE ESTERASE NEGATIVE Leu/uL (NEGATIVE); URINE UROBILINOGEN 0.2 E.U./dL (<1 E.U./dL)
[2019-02-04 19:48] LABS: URINE APPEARANCE CLEAR (CLEAR); URINE PROTEIN NEGATIVE mg/dL (<30 mg/dL)
[2019-02-04 19:56] LABS: BARBITURATES, UR NEGATIVE (NEGATIVE); BENZODIAZEPINES, UR NEGATIVE (NEGATIVE); OPIATES, UR NEGATIVE (NEGATIVE); PHENCYCLIDINE, UR NEGATIVE (NEGATIVE)
[2019-02-04 22:33] VITALS: O2SAT 100
[2019-02-04] MEDS ORDERED: DiphenhydrAMINE 50 mg/ml Inj IM PRN (22:55)
[2019-02-04] MEDS ORDERED: Magnesium Hydroxide Susp 30 ml UD PO PRN (22:58)
[2019-02-04] MEDS ORDERED: Alum-Mag Hydrox-Simethicone Susp (30 mL) PO PRN (22:58)
--- NOTE | 2019-02-05 04:10 | PCM.BM ---
<Anh Pearson - Last Filed: 02/05/19 04:07> Treatment Plan Problems - Problems identified on initial assessmt Medication non-adherence Date Initiated: 02/05/19 Time Initiated: 04:08 Assessment reference: NA Status: Active Altered thought process Date Initiated: 02/05/19 Time Initiated: 04:08 Assessment reference: NA Status: Active High risk violence Date Initiated: 02/05/19 Time Initiated: 04:09 Assessment reference: NA Status: Active Ineffective coping Date Initiated: 02/05/19 Time Initiated: 04:09 Assessment reference: NA Status: Active Treatment assets and liabiliti Patient Assests: insightful, motivated, ADL independent, physically healthy, negotiates basic needs, cognitively intact (Homeless) Patient Liabilities: financial problems, poor support system, substance abuse (homelessness) - Milieu Protocol Maintain good personal hygiene: daily Encourage regular showers, daily Remind patient to perform daily oral care Conduct patient checks and document Observation sheet: Q15 minutes Maintain personal safety: every shift Educate patient to report safety concerns to staff, every shift Monitor environment for contraband/sharps Medication safety: Monitor for expected outcome, potential side effects: every shift, Assess barriers to learning: daily, Assess readiness for medication education: every shift Family Contact Family involvement: Patient does not wish Family/SO involvement Discharge/Continuing Care - Education Needs Education Needs: Patient Medication, Patient Diagnosis/Disease Process, Patient Coping Skills, Patient Anger Management skills, Patient Placement options, Gayle ent Community resources, Patient Activities of Daily Living, Patient Health Practices/Safety, Patient Personal Hygiene/Grooming, Patient Aftercare Safety Plan - Discharge Discharge Criteria: Tolerates medication w/o severe side effects, Free of paranoid thoughts, Free of agitation, Normal sleep pattern, Ability to care for self, No longer exhibiting s/s of withdrawal, Reduction of target symptoms Discharge to:: Jail <Aliya Yee - Last Filed: 02/07/19 16:38> Family Contact Family involvement: Family/SO is involved Family contact: Patient agrees to contact Family contact name: Danielle Coombs([phone]) mother Family contacted how many times per week?: 2 - Outside Agency [place] [employer] involvment: Information-sharing Agency contact name: [place] [employer] [facility]
[2019-02-05 07:50] LABS: GLUCOSE,FASTING 92 mg/dL (65-110); HDL CHOLESTEROL 40 mg/dL (29-60)
[2019-02-05 08:02] LABS: LDL CHOLESTEROL 73 mg/dL (0-129)
--- NOTE | 2019-02-05 15:10 | PCM.PSYCH ---
Initial Psychiatric Evaluation - Initial Psychiatric Evaluation Type of Admission: Voluntary Legal Status: Capacity Chief Complaint (in patient's own words): "I am resting..." Patient's Reaction to Hospitalization: Patient was admitted for evaluation stabilization of bizarre/disorganized/psychotic behavior. History of Present Illness and Precipitating Events: shortly pt is 28-year-old male with a history of mental illness, possible bipolar disorder, chronic noncompliance with meds, f/u appt, pt also has h/o sub stance use, PCP, pt was brought by ambulance and police for disruptive behavior in community, pt tried to drink the gasolene at the [employer] store and wanted to "explode", while being under the infuence of drugs. This engineering technical writer attempted to stick to the patient in his room with mental health worker and medical student, patient is very sedated, sleeping, snoring, not able to participate in interview. pt was easily aroused, but falling back asleep within a few seconds. pt presented with poor personal hygiene, fair ADLs. Majority of the information was obtained from the medical records, previous admi ssion, emergency room report. As per collateral information from the nursing staff patient presented to be disorganized, psychotic, did not make much sense, was malodorous, unkempt, pt was irritable, patient reported being noncompliant with medications and follow- up appointments, patient supposed to be on Haldol and Cogentin but did not remember when was the last time he took both medications. Impulses were unpredictable, patient presented to be disorganized/thought process circumstantial and tangential. As per PES report patient was recently at [facility], patient has history of schizophrenia versus schizoaffective disorder/polysubstance abuse and dependence, recent discharge from [facility] inpatient psychiatric unit last week. This engineering technical writer was not able to assess this patient smokes or not due to patient's presentation. As per previous history from [facility] 10/23 2018, pt was disorganized/psychotic pt said that he was feeling like "I am feeling like Iker Mora.' Presented to be agitated/manic/racing thoughts/flight of ideas/poor concentration. Patient was on Haldol and Cogentin and as needed Geodon and Ativan. Not known history of suicidal attempts. Family history: Unknown Medical history: Unknown. Patient was cleared by medical team in the emergency room. 02/04/19 13:30 02/04/19 13:30 Lab Results 02/05/19 07:00: TSH 3rd Generation 0.68 02/05/19 07:00: Fasting Glucose 92, Triglycerides 65, Cholesterol 127 L, LDL Cholesterol Direct 73, HDL Cholesterol 40 02/04/19 19:30: Urine Opiates Screen Negative, Urine Methadone Screen Negative, Ur Barbiturates Screen Negative, Ur Phencyclidine Scrn Negative, Ur Amphetamines Screen Negative, U Benzodiazepines Scrn Negative, U Oth Cocaine Metabols Negative, U Cannabinoids Screen Positive H 02/04/19 19:30: Urine Color yellow, Urine Appearance Clear, Urine pH 6.0, Ur Specific [place] 1.025, Urine Protein Negative, Urine Glucose (UA) Negative, Urine Ketones Negative, Urine Blood Negative, Urine Nitrate Negative, Urine Bilirubin Negative, Urine Urobilinogen 0.2, Ur Leukocyte Esterase Negative 02/04/19 13:30: Alcohol, Quantitative < 10 02/04/19 13:30: Salicylates < 1 L, Acetaminophen < 10.0 L 02/04/19 13:30: Sodium 141, Potassium 3.8, Chloride 104, Carbon Dioxide 23, Anion Gap 17, BUN 10, Creatinine 1.0, Est GFR ( Amer) > 60, Est GFR (Non- Af Amer) > 60, Random Glucose 100, Calcium 9.6, Total Bilirubin 0.3, AST 31, ALT 18, Alkaline Phosphatase 53, Total Protein 7.7, Albumin 4.3, Globulin 3.4, Album in/Globulin Ratio 1.3 02/04/19 13:30: WBC 7.3 D, RBC 4.72, Hgb 13.4 L, Hct 40.6 L, MCV 86.0, MCH 28.4, MCHC 33.0, RDW 12.7, Plt Count 229, MPV 9.7, Neut % (Auto) 59.1, Lymph % (Auto) 29.8, [place] % (Auto) 8.0 H, Eos % (Auto) 2.7, Baso % (Auto) 0.4, Lymph # (Auto) 2.2, [place] # (Auto) 0.6, Eos # (Auto) 0.2, Baso # (Auto) 0.03, Absolute Neuts (auto) 4.33 02/04/19 13:04: POC Glucose (mg/dL) 145 H Vital Signs Temp Pulse Resp BP Pulse Ox 02/05/19 07:19 98.2 F 44 L 18 118/71 02/04/19 23:15 98.2 F 49 L 18 133/86 100 02/04/19 22:31 98.2 F 60 16 140/66 100 02/04/19 20:20 98.3 F 65 16 131/75 96 02/04/19 17:43 88 16 150/76 97 02/04/19 13:09 98.2 F 99 H 17 141/95 H 99 The patient failed the outpatient lower level of care: Yes Current Medications: Active Medications Generic Name Dose Route Start Last Admin Trade Name Freq PRN Reason Stop Dose Admin Acetaminophen 650 mg 02/04/19 22:58 Tylenol 325mg Tab PO Q6H PRN Pain, moderate (4-7) Al Hydrox/Mg Hydrox/Simethicone 30 ml 02/04/19 22:58 Maalox Plus 30 Ml PO DAILY PRN Upset Stomach Benztropine Mesylate 0.5 mg 02/05/19 08:00 02/05/19 09:30 Cogentin PO 0.5 mg BID AVA Administration Benztropine Mesylate 0.5 mg 02/05/19 22:00 Cogentin PO HS AVA Diphenhydramine HCl 50 mg 02/04/19 22:55 Benadryl IM Q6 PRN Allergy symptoms Diphenhydramine HCl 50 mg 02/05/19 03:51 Benadryl PO Q6 PRN Allergy symptoms Haloperidol 5 mg 02/05/19 08:00 02/05/19 09:30 Haldol PO 5 mg BID AVA Administration Protocol Haloperidol 5 mg 02/04/19 23:30 Haldol PO Q6 PRN Agitation Protocol Haloperidol 5 mg 02/05/19 22:00 Haldol PO HS AVA Protocol Haloperidol Lactate 5 mg 02/04/19 22:55 Haldol IM Q6 PRN Agitation Protocol Lorazepam 2 mg 02/04/19 22:57 Ativan IM Q6 PRN Anxiety Protocol Lorazepam 2 mg 02/04/19 23:30 Ativan PO Q6 PRN Anxiety Protocol Lorazepam 1 mg 02/05/19 22:00 Ativan PO HS AVA Protocol Lorazepam 1 mg 02/05/19 08:00 02/05/19 09:29 Ativan PO 1 mg BID AVA Administration Protocol Magnesium Hydroxide 30 ml 02/04/19 22:58 Milk Of Magnesia PO DAILY PRN Constipation Trazodone HCl 50 mg 02/04/19 22:53 Desyrel PO HS PRN Insomnia Present on Admission - Present on Admission Any Indicators Present on Admission: No History of DVT/PE: No History of Uncontrolled Diabetes: No Urinary Catheter: No Decubitus Ulcer Present: No Review of Systems - Review of Systems Systems not reviewed;Unavailable: Acuity of Condition - Constitutional Constitutional: As Per HPI - EENT Eyes: As Per HPI Ears: As Per HPI Nose/Mouth/Throat: As Per HPI - Cardiovascular Cardiovascular: As Per HPI - Respiratory Respiratory: As Per HPI - Gastrointestinal Gastrointestinal: As Per HPI - Genitourinary Genitourinary: As Per HPI - Reproductive: Male Reproductive:Male: As Per HPI - Musculoskeletal Musculoskeletal: As Per HPI - Integumentary Integumentary: As Per HPI - Neurological Neurological: As Per HPI - Psychiatric Psychiatric: As Per HPI - Endocrine Endocrine: As Per HPI - Hematologic/Lymphatic Hematologic: As Per HPI Past Patient History - Past Psychiatric History Previous Treatment History: Inpatient Prior Professional Help: See HPI Prior Psychiatric Treatment: See HPI At what hospital: See HPI Duration: See HPI Nature of Treatment: See HPI Explanation of prior treatment: See HPI - PSYCHIATRIC Hx Bipolar Disorder: Yes Hx Schizophrenia: Yes Hx Substance Use: Yes - Infectious Disease Hx of Infectious Diseases: None - CARDIAC Hx Cardiac Disorders: No Hx Hypertension: No - PULMONARY Hx Tuberculosis: No - NEUROLOGICAL HX Cerebrovascular Accident: No Hx Seizures: No - HEENT Hx HEENT Problems: No - RENAL Hx Chronic Kidney Disease: No - ENDOCRINE/METABOLIC Hx Endocrine Disorders: No - HEMATOLOGICAL/ONCOLOGICAL Hx Cancer: No Hx Human Immunodeficiency Virus (HIV): No - INTEGUMENTARY Hx Dermatological Problems: No - MUSCULOSKELETAL/RHEUMATOLOGICAL Hx Musculoskeletal Disorders: No - GASTROINTESTINAL Hx Gastrointestinal Disorders: No - GENITOURINARY/GYNECOLOGICAL Hx Sexually Transmitted Disorders: No - SURGICAL HISTORY Hx Surgeries: No - ANESTHESIA Hx Anesthesia: No Hx Anesthesia Reactions: No Hx Malignant Hyperthermia: No - Medical/Surgical History Reviewed & confirmed: by nc Meds Allergies/Adverse Reactions: Allergies Allergy/AdvReac Type Severity Reaction Status Date / Time No Known Allergies Allergy Verified 02/04/19 23:14 Mental Status Examination - Personal Presentation Personal Presentation: Looks stated age - Affect Affect: Constricted, Flat - Motor Activity Motor Activity: Psychomotor Retardation - Reliability in Providing Information Reliability in Providing Information: Poor, due to alteration in thoughts, Poor, due to cognitve impairment - Speech Speech: Disorganized - Formal Thought Process Formal Thought Process: Hallucinations, Delusions, Paranoia, Loosening of associations, Circumstantial - Hallucinations/Delusions Delusions: Persecution - Obsessions/Compulsions Obsessions: None Compulsions: None - Cognitive Functions Orientation: Person Sensorium: Drowsy Attention/Concentration: Easily distracted Abstract Thinking: [place] Estimate of Intelligence: Below average Judgement: Intact, as evidence by: Insight regarding need for hospitalization - Risk Risk: Self-mutilation, Diminished functioning - Strength & Assets Inventory Strength & Assets Inventory: Other (Good physical health) - Limitations Limitations: Other (Severe psychosis/unpredictable behavior/chronic noncompliance with her medications and follow-up appointments) Psychiatric Physical Exam - Physical Exam Reviewed and confirmed: Emergency Department Physical Exam Results - Vital Signs Recent Vital Signs: Last Vital Signs Temp 98.2 F 02/05/19 07:19 Pulse 44 L 02/05/19 07:19 Resp 18 02/05/19 07:19 BP 118/71 02/05/19 07:19 Pulse Ox 100 02/04/19 23:15 - Labs Result Diagrams: 02/04/19 13:30 02/04/19 13:30 Labs: Laboratory Results - last 24 hr 02/04/19 02/04/19 02/04/19 13:04 13:30 13:30 WBC 7.3 D RBC 4.72 Hgb 13.4 L Hct 40.6 L MCV 86.0 MCH 28.4 MCHC 33.0 RDW 12.7 Plt Count 229 MPV 9.7 Neut % (Auto) 59.1 Lymph % (Auto) 29.8 [place] % (Auto) 8.0 H Eos % (Auto) 2.7 Baso % (Auto) 0.4 Lymph # (Auto) 2.2 [place] # (Auto) 0.6 Eos # (Auto) 0.2 Baso # (Auto) 0.03 Absolute Neuts (auto) 4.33 Sodium 141 Potassium 3.8 Chloride 104 Carbon Dioxide 23 Anion Gap 17 BUN 10 Creatinine 1.0 Est GFR ( Amer) > 60 Est GFR (Non-Af Amer) > 60 POC Glucose (mg/dL) 145 H Random Glucose 100 Fasting Glucose Calcium 9.6 Total Bilirubin 0.3 AST 31 ALT 18 Alkaline Phosphatase 53 Total Protein 7.7 Albumin 4.3 Globulin 3.4 Albumin/Globulin Ratio 1.3 Triglycerides Cholesterol LDL Cholesterol Direct HDL Cholesterol TSH 3rd Generation Urine Color Urine Appearance Urine pH Ur Specific [place] Urine Protein Urine Glucose (UA) Urine Ketones Urine Blood Urine Nitrate Urine Bilirubin Urine Urobilinogen Ur Leukocyte Esterase Salicylates Urine Opiates Screen Urine Methadone Screen Acetaminophen Ur Barbiturates Screen Ur Phencyclidine Scrn Ur Amphetamines Screen U Benzodiazepines Scrn U Oth Cocaine Metabols U Cannabinoids Screen Alcohol, Quantitative 02/04/19 02/04/19 02/04/19 13:30 13:30 19:30 WBC RBC Hgb Hct MCV MCH MCHC RDW Plt Count MPV Neut % (Auto) Lymph % (Auto) [place] % (Auto) Eos % (Auto) Baso % (Auto) Lymph # (Auto) [place] # (Auto) Eos # (Auto) Baso # (Auto) Absolute Neuts (auto) Sodium Potassium Chloride Carbon Dioxide Anion Gap BUN Creatinine Est GFR ( Amer) Est GFR (Non-Af Amer) POC Glucose (mg/dL) Random Glucose Fasting Glucose Calcium Total Bilirubin AST ALT Alkaline Phosphatase Total Protein Albumin Globulin Albumin/Globulin Ratio Triglycerides Cholesterol LDL Cholesterol Direct HDL Cholesterol TSH 3rd Generation Urine Color yellow Urine Appearance Clear Urine pH 6.0 Ur Specific [place] 1.025 Urine Protein Negative Urine Glucose (UA) Negative Urine Ketones Negative Urine Blood Negative Urine Nitrate Negative Urine Bilirubin Negative Urine Urobilinogen 0.2 Ur Leukocyte Esterase Negative Salicylates < 1 L Urine Opiates Screen Urine Methadone Screen Acetaminophen < 10.0 L Ur Barbiturates Screen Ur Phencyclidine Scrn Ur Amphetamines Screen U Benzodiazepines Scrn U Oth Cocaine Metabols U Cannabinoids Screen Alcohol, Quantitative < 10 02/04/19 02/05/19 02/05/19 19:30 07:00 07:00 WBC RBC Hgb Hct MCV MCH MCHC RDW Plt Count MPV Neut % (Auto) Lymph % (Auto) [place] % (Auto) Eos % (Auto) Baso % (Auto) Lymph # (Auto) [place] # (Auto) Eos # (Auto) Baso # (Auto) Absolute Neuts (auto) Sodium Potassium Chloride Carbon Dioxide Anion Gap BUN Creatinine Est GFR ( Amer) Est GFR (Non-Af Amer) POC Glucose (mg/dL) Random Glucose Fasting Glucose 92 Calcium Total Bilirubin AST ALT Alkaline Phosphatase Total Protein Albumin Globulin Albumin/Globulin Ratio Triglycerides 65 Cholesterol 127 L LDL Cholesterol Direct 73 HDL Cholesterol 40 TSH 3rd Generation 0.68 Urine Color Urine Appearance Urine pH Ur Specific [place] Urine Protein Urine Glucose (UA) Urine Ketones Urine Blood Urine Nitrate Urine Bilirubin Urine Urobilinogen Ur Leukocyte Esterase Salicylates Urine Opiates Screen Negative Urine Methadone Screen Negative Acetaminophen Ur Barbiturates Screen Negative Ur Phencyclidine Scrn Negative Ur Amphetamines Screen Negative U Benzodiazepines Scrn Negative U Oth Cocaine Metabols Negative U Cannabinoids Screen Positive H Alcohol, Quantitative - EKG Data EKG Interpreted by: ER Physician DSM Plan - DSM 5 DSM 5 Diagnosis: As per history of schizoaffective versus schizophrenia Polysubstance abuse and dependence - Recommended/Plan of Treatment Treatment Recommendations and Plan of Treatment: Milieu/structure/supportive therapy SW consultation for discharge plan and social issues Med management Haldol 5 mg twice daily and at bedtime for psychosis Cogentin 0.5 mg twice daily and at bedtime for possible EPS Ativan 1 mg twice daily and at bedtime for restless and agitated behavior As needed medications Family involvement Follow up on labs Will monitor closely Pt was educated about risk/benefits and alternatives of medications, coping strategies (safety plan, suicide prevention), relapse prevention, importance of follow up with psychiatrist and therapist, stay away from drugs/alcohol/smoking Projected ELOS: 7 days Prognosis: guarded Discharge Plan and Discharge Criteria: Patient will pose no imminent danger to self or others - Tobacco Cessation Reason for not providing: pt is disorganized and sedated - Alcohol or Substance Abuse Does the patient have an Alcohol or Substance Abuse Disorder: Yes Initial Psych Certification - Initial Certification I certify that the inpatient psychiatric facility admission was medically necessary for either: Treatment which could reasonbly be expected to improve pt's condition I estimate of hospitalization is necessary for proper treatment of the patient: 7 Unit of Time: Days My plans for post-hospital care for this patient are: Inpatient rehab versus dual diagnosis program.
--- NOTE | 2019-02-06 12:08 | PCM.PYCHPN ---
Psychiatric Progress Note - Psychiatric Progress Note Patient seen today, length of contact: 30min Patient Chief Complaint: "I came here to sleep, I am resting don't you see?" Problems Identified/Issues Discussed: No meaningful conversation possible due to psychosis/drowsiness. Medical Problems: See HPI Diagnostic Results: 02/04/19 13:30 02/04/19 13:30 Lab Results 02/05/19 07:00: RPR Nonreactive 02/05/19 07:00: TSH 3rd Generation 0.68 02/05/19 07:00: Fasting Glucose 92, Triglycerides 65, Cholesterol 127 L, LDL Cholesterol Direct 73, HDL Cholesterol 40 02/04/19 19:30: Urine Opiates Screen Negative, Urine Methadone Screen Negative, Ur Barbiturates Screen Negative, Ur Phencyclidine Scrn Negative, Ur Amphetamines Screen Negative, U Benzodiazepines Scrn Negative, U Oth Cocaine Metabols Negative, U Cannabinoids Screen Positive H 02/04/19 19:30: Urine Color yellow, Urine Appearance Clear, Urine pH 6.0, Ur Specific [place] 1.025, Urine Protein Negative, Urine Glucose (UA) Negative, Urine Ketones Negative, Urine Blood Negative, Urine Nitrate Negative, Urine Bilirubin Negative, Urine Urobilinogen 0.2, Ur Leukocyte Esterase Negative 02/04/19 13:30: Alcohol, Quantitative < 10 02/04/19 13:30: Salicylates < 1 L, Acetaminophen < 10.0 L 02/04/19 13:30: Sodium 141, Potassium 3.8, Chloride 104, Carbon Dioxide 23, Anio n Gap 17, BUN 10, Creatinine 1.0, Est GFR ( Amer) > 60, Est GFR (Non-Af Amer) > 60, Random Glucose 100, Calcium 9.6, Total Bilirubin 0.3, AST 31, ALT 18, Alkaline Phosphatase 53, Total Protein 7.7, Albumin 4.3, Globulin 3.4, Albumin/Globulin Ratio 1.3 02/04/19 13:30: WBC 7.3 D, RBC 4.72, Hgb 13.4 L, Hct 40.6 L, MCV 86.0, MCH 28.4, MCHC 33.0, RDW 12.7, Plt Count 229, MPV 9.7, Neut % (Auto) 59.1, Lymph % (Auto) 29.8, [place] % (Auto) 8.0 H, Eos % (Auto) 2.7, Baso % (Auto) 0.4, Lymph # (Auto) 2.2, [place] # (Auto) 0.6, Eos # (Auto) 0.2, Baso # (Auto) 0.03, Absolute Neuts (auto) 4.33 02/04/19 13:04: POC Glucose (mg/dL) 145 H Vital Signs Temp Pulse Resp BP Pulse Ox 02/06/19 07:23 98.3 F 76 20 114/65 02/05/19 16:00 50 L 121/70 02/05/19 07:19 98.2 F 44 L 18 118/71 02/04/19 23:15 98.2 F 49 L 18 133/86 100 02/04/19 22:31 98.2 F 60 16 140/66 100 02/04/19 20:20 98.3 F 65 16 131/75 96 02/04/19 17:43 88 16 150/76 97 02/04/19 13:09 98.2 F 99 H 17 141/95 H 99 DSM 5 Symptoms Update: shortly pt is 28-year-old male with a history of mental illness, possible bipolar disorder, chronic noncompliance with meds, f/u appt, pt also has h/o substance use, PCP, pt was brought by ambulance and police for disruptive behavior in community, pt tried to drink the gasolene at the [employer] store and wanted to "explode", while being under the infuence of drugs. correction to my previous note "This verse writer attempted to stick"should be read as "This verse writer attempted to speak". Patient was seen in his room, no meaningful conversation possible, patient laid down with patient said that he is resting, her here to talk to this verse writer. As per nursing staff report, patient is seclusive, is not interested to have conversation, patient is not showering, thought process disorganized. At the same time no agitation, no aggression. So far patient compliant with her medications, no side effects observed or reported. Impression: Schizophrenia versus schizoaffective disorder Polysubstance abuse Medication Change: Yes (Resumed) Medical Record Reviewed: Yes Consults ordered or reviewed: Patient was cleared by medical team in the emergency room Mental Status Examination - Cognitive Function Orientation: Person Memory: Impaired Attention: Poor Concentration: Poor Association: Loose Fund of Knowledge: Poor - Affect Affect: Constricted, Flat - Formal Thought Process Formal Thought Process: Hallucinations, Delusions, Paranoia, Loosening of associations, Circumstantial - Suicidal Ideation Suicidal Ideation: No - Homicidal Ideation Homicidal Ideation: No Goal/Treatment Plan - Goal/Treatment Plan Need for Continued Stay: Remain at risks for inpatient hospitalization, Severe depression anxiety, Discharge may exacerbated symptoms, Severe functional impairment Progress Toward Problem(s) and Goals/Treatment Plan: Milieu/structure/supportive therapy SW consultation for discharge plan and social issues Med management Haldol 5 mg twice daily and at bedtime for psychosis Cogentin 0.5 mg twice daily and at bedtime for possible EPS Ativan 1 mg twice daily and at bedtime for restless and agitated behavior As needed medications Family involvement Follow up on labs Will monitor closely Pt was educated about risk/benefits and alternatives of medications, coping strategies (safety plan, suicide prevention), relapse prevention, importance of follow up with psychiatrist and therapist, stay away from drugs/alcohol/smoking Estimated Date of D/C: 02/12/19
[2019-02-07 07:05] VITALS: RESP 14; TEMP 97.9
--- NOTE | 2019-02-07 14:56 | PCM.PYCHPN ---
Psychiatric Progress Note - Psychiatric Progress Note Patient seen today, length of contact: 30min Patient Chief Complaint: "I tried to defeat Optimus Prime by drinking gasoline, it is just a funny joke, nothing is wrong with me, I am your friendly, neighborhood Spiderman" Problems Identified/Issues Discussed: No meaningful conversation possible patient is in manic stage, psychotic, patient was to be discharged as soon as possible, Medical Problems: See HPI Diagnostic Results: 02/04/19 13:30 02/04/19 13:30 Lab Results 02/05/19 07:00: RPR Nonreactive 02/05/19 07:00: TSH 3rd Generation 0.68 02/05/19 07:00: Fasting Glucose 92, Triglycerides 65, Cholesterol 127 L, LDL Cholesterol Direct 73, HDL Cholesterol 40 02/04/19 19:30: Urine Opiates Screen Negative, Urine Methadone Screen Negative, Ur Barbiturates Screen Negative, Ur Phencyclidine Scrn Negative, Ur Amphetamines Screen Negative, U Benzodiazepines Scrn Negative, U Oth Cocaine Metabols Negative, U Cannabinoids Screen Positive H 02/04/19 19:30: Urine Color yellow, Urine Appearance Clear, Urine pH 6.0, Ur Specific [place] 1.025, Urine Protein Negative, Urine Glucose (UA) Negative, Urine Ketones Negative, Urine Blood Negative, Urine Nitrate Negative, Urine Bilirubin Negative, Urine Urobilinogen 0.2, Ur Leukocyte Esterase Negative 02/04/19 13:30: Alcohol, Quantitative < 10 02/04/19 13:30: Salicylates < 1 L, Acetaminophen < 10.0 L 02/04/19 13:30: Sodium 141, Potassium 3.8, Chloride 104, Carbon Dioxide 23, Anion Gap 17, BUN 10, Creatinine 1.0, Est GFR ( Amer) > 60, Est GFR (Non- Af Amer) > 60, Random Glucose 100, Calcium 9.6, Total Bilirubin 0.3, AST 31, ALT 18, Alkaline Phosphatase 53, Total Protein 7.7, Albumin 4.3, Globulin 3.4, Albumin/Globulin Ratio 1.3 02/04/19 13:30: WBC 7.3 D, RBC 4.72, Hgb 13.4 L, Hct 40.6 L, MCV 86.0, MCH 28.4, MCHC 33.0, RDW 12.7, Plt Count 229, MPV 9.7, Neut % (Auto) 59.1, Lymph % (Auto) 29.8, [place] % (Auto) 8.0 H, Eos % (Auto) 2.7, Baso % (Auto) 0.4, Lymph # (Auto) 2.2, [place] # (Auto) 0.6, Eos # (Auto) 0.2, Baso # (Auto) 0.03, Absolute Neuts (auto) 4.33 02/04/19 13:04: POC Glucose (mg/dL) 145 H Vital Signs Temp Pulse Resp BP Pulse Ox 02/06/19 07:23 98.3 F 76 20 114/65 02/05/19 16:00 50 L 121/70 02/05/19 07:19 98.2 F 44 L 18 118/71 02/04/19 23:15 98.2 F 49 L 18 133/86 100 02/04/19 22:31 98.2 F 60 16 140/66 100 02/04/19 20:20 98.3 F 65 16 131/75 96 02/04/19 17:43 88 16 150/76 97 02/04/19 13:09 98.2 F 99 H 17 141/95 H 99 DSM 5 Symptoms Update: shortly pt is 28-year-old male with a history of mental illness, possible bipolar disorder, chronic noncompliance with meds, f/u appt, pt also has h/o substance use, PCP, pt was brought by ambulance and police for disruptive behavior in community, pt tried to drink the gasolene at the auto store and wanted to "explode", while being under the influence of drugs. Patient was seen from the treatment team meeting today, patient presented in manic stage/psychotic. Patient presented with mind racing, laughing inappropriately, thought process is circumstantial/tangential disorganized, pt was making inappropriate jokes, as reported from the nursing staff patient was sexually preoccupied, needs constant redirections, at the same time pt is becoming defensive and irritable very easily, impulses are unpredictable. Patient requested to be discharged as soon as possible, submitted 48-hour notice. Patient meets criteria for [facility] screening because he thinks it is "funny to drink a gasoline to defeat Optimus Prime", pt is psychotic, irritable/manic, sexually preoccupied, pt feels that he is "neighborhood Spiderman". So far patient compliant with her medications, no side effects observed or reported. Patient reported that he is on Haldol Decanoate and injection was sometimes recent. Patient reports that he smokes "too many cigarettes a day," patient asked "give me a gum, you know gum is for chewing." drinks alcohol "here and there.." pt is on probation. Impression: Schizophrenia versus schizoaffective disorder Polysubstance abuse Medication Change: Yes (Depakote added, haldol increased) Medical Record Reviewed: Yes Consults ordered or reviewed: Patient was cleared by medical team in the emergency room Mental Status Examination - Cognitive Function Orientation: Person Memory: Impaired Attention: Poor Concentration: Poor Association: Loose Fund of Knowledge: Poor - Affect Affect: Other (Level) - Speech Speech: Pressured - Formal Thought Process Formal Thought Process: Hallucinations, Delusions, Paranoia, Loosening of associations, Circumstantial - Suicidal Ideation Suicidal Ideation: No - Homicidal Ideation Homicidal Ideation: No Goal/Treatment Plan - Goal/Treatment Plan Need for Continued Stay: Remain at risks for inpatient hospitalization, Severe depression anxiety, Discharge may exacerbated symptoms, Severe functional i mpairment Progress Toward Problem(s) and Goals/Treatment Plan: Milieu/structure/supportive therapy SW consultation for discharge plan and social issues Med management Haldol 10 mg twice daily and at bedtime for psychosis Cogentin 0.5 mg twice daily and at bedtime for possible EPS Depakote 500 mg twice daily and at bedtime for mood stabilization Ativan 1 mg twice daily and at bedtime for restless and agitated behavior As needed medications Family involvement Follow up on labs Will monitor closely Pt was educated about risk/benefits and alternatives of medications, coping strategies (safety plan, suicide prevention), relapse prevention, importance of follow up with psychiatrist and therapist, stay away from drugs/alcohol/smoking Patient submitted 48-hour notice, screening will be initiated Estimated Date of D/C: 02/12/19
[2019-02-07] MEDS: Divalproex 500 mg DR(BID formulation) PO SCH ×3 (17:36→21:21)
[2019-02-08] MEDS: Divalproex 500 mg DR(BID formulation) PO SCH ×3 (10:20→21:38)
--- NOTE | 2019-02-08 11:43 | PCM.PYCHPN ---
Psychiatric Progress Note - Psychiatric Progress Note Patient seen today, length of contact: 30min Problems Identified/Issues Discussed: I reviewed assessment and recent notes. Patient placed 48 hour notice yesterday and was seen by [facility] screeners who determined that patient did not meet criteria for involuntary commitment. Patient continues to be delusional, labile and oddly related with scattered thought process. Denies AVH, SI or HI. Aware that he will be discharged AMA on his 48 hour letter tomorrow 02/09/19. Diagnostic Results: Schizophrenia versus schizoaffective disorder Polysubstance abuse Medication Change: Yes (Depakote added, haldol increased) Medical Record Reviewed: Yes Mental Status Examination - Cognitive Function Orientation: Person, Place, Situation Memory: Impaired Attention: Poor Concentration: Poor Association: Loose Fund of Knowledge: Poor - Affect Affect: Other (labile) - Speech Speech: Pressured - Formal Thought Process Formal Thought Process: Hallucinations (denied), Delusions, Paranoia, Loosening of associations, Circumstantial - Suicidal Ideation Suicidal Ideation: No - Homicidal Ideation Homicidal Ideation: No Goal/Treatment Plan - Goal/Treatment Plan Need for Continued Stay: Remain at risks for inpatient hospitalization, Severe depression anxiety, Discharge may exacerbated symptoms, Severe functional impairment Progress Toward Problem(s) and Goals/Treatment Plan: * c/w current tx and plan * Aware that he will be discharged AMA on his 48 hour letter tomorrow 02/09/19. [facility] screeners determined that patient did not meet criteria for involuntary commitment. * No new weekend lab results noted thus far * Vitals reviewed and noted below: Selected Entries 02/07/19 07:00 Temperature 97.9 F Pulse Rate 55 L Respiratory 14 Rate Blood Pressure 108/63 Estimated Date of D/C: 02/12/19
[2019-02-08 16:18] VITALS: BP 111/66; PULSE 78
[2019-02-09] MEDS: Divalproex 500 mg DR(BID formulation) PO SCH (08:27)
--- NOTE | 2019-02-09 10:09 | PCM.PYCHDC ---
Mental Status Examination - Mental Status Examination Orientation: Person, Place, Situation Memory: Intact Mood: Anxious Affect: Broad Speech: Appropriate Attention: WNL Concentration: WNL Association: WNL Fund of Knowledge: WNL Formal Thought Process: No Impairment Description of patient's judgement and insight: improved insight and judgment Psychotic Thoughts and Behaviors: Patient denied perceptual disturbance including hallucinations or paranoia. Delusions were not elicited on day of discharge. Suicidal Ideation: No Current Homicidal Ideation?: No Discharge Summary - Discharge Note Reason for Hospitalization: shortly pt is 28-year-old male with a history of mental illness, possible bipolar disorder, chronic noncompliance with meds, f/u appt, pt also has h/o substance use, PCP, pt was brought by ambulance and police for disruptive behavior in community, pt tried to drink the gasolene at the auto store and wanted to "explode", while being under the infuence of drugs. Psychiatric History (includes Medical, Family, Personal Hx): See HPI Laboratory Data: Laboratory Tests 02/04/19 02/04/19 02/04/19 13:04 13:30 13:30 WBC 7.3 D RBC 4.72 Hgb 13.4 L Hct 40.6 L MCV 86.0 MCH 28.4 MCHC 33.0 RDW 12.7 Plt Count 229 MPV 9.7 Neut % (Auto) 59.1 Lymph % (Auto) 29.8 [place] % (Auto) 8.0 H Eos % (Auto) 2.7 Baso % (Auto) 0.4 Lymph # (Auto) 2.2 [place] # (Auto) 0.6 Eos # (Auto) 0.2 Baso # (Auto) 0.03 Absolute Neuts (auto) 4.33 Sodium 141 Potassium 3.8 Chloride 104 Carbon Dioxide 23 Anion Gap 17 BUN 10 Creatinine 1.0 Est GFR ( Amer) > 60 Est GFR (Non-Af Amer) > 60 POC Glucose (mg/dL) 145 H Random Glucose 100 Fasting Glucose Calcium 9.6 Total Bilirubin 0.3 AST 31 ALT 18 Alkaline Phosphatase 53 Total Protein 7.7 Albumin 4.3 Globulin 3.4 Albumin/Globulin Ratio 1.3 Triglycerides Cholesterol LDL Cholesterol Direct HDL Cholesterol TSH 3rd Generation Urine Color Urine Appearance Urine pH Ur Specific [place] Urine Protein Urine Glucose (UA) Urine Ketones Urine Blood Urine Nitrate Urine Bilirubin Urine Urobilinogen Ur Leukocyte Esterase Salicylates Urine Opiates Screen Urine Methadone Screen Acetaminophen Ur Barbiturates Screen Ur Phencyclidine Scrn Ur Amphetamines Screen U Benzodiazepines Scrn U Oth Cocaine Metabols U Cannabinoids Screen Alcohol, Quantitative RPR 02/04/19 02/04/19 02/04/19 13:30 13:30 19:30 WBC RBC Hgb Hct MCV MCH MCHC RDW Plt Count MPV Neut % (Auto) Lymph % (Auto) [place] % (Auto) Eos % (Auto) Baso % (Auto) Lymph # (Auto) [place] # (Auto) Eos # (Auto) Baso # (Auto) Absolute Neuts (auto) Sodium Potassium Chloride Carbon Dioxide Anion Gap BUN Creatinine Est GFR ( Amer) Est GFR (Non-Af Amer) POC Glucose (mg/dL) Random Glucose Fasting Glucose Calcium Total Bilirubin AST ALT Alkaline Phosphatase Total Protein Albumin Globulin Albumin/Globulin Ratio Triglycerides Cholesterol LDL Cholesterol Direct HDL Cholesterol TSH 3rd Generation Urine Color yellow Urine Appearance Clear Urine pH 6.0 Ur Specific [place] 1.025 Urine Protein Negative Urine Glucose (UA) Negative Urine Ketones Negative Urine Blood Negative Urine Nitrate Negative Urine Bilirubin Negative Urine Urobilinogen 0.2 Ur Leukocyte Esterase Negative Salicylates < 1 L Urine Opiates Screen Urine Methadone Screen Acetaminophen < 10.0 L Ur Barbiturates Screen Ur Phencyclidine Scrn Ur Amphetamines Screen U Benzodiazepines Scrn U Oth Cocaine Metabols U Cannabinoids Screen Alcohol, Quantitative < 10 RPR 02/04/19 02/05/19 02/05/19 19:30 07:00 07:00 WBC RBC Hgb Hct MCV MCH MCHC RDW Plt Count MPV Neut % (Auto) Lymph % (Auto) [place] % (Auto) Eos % (Auto) Baso % (Auto) Lymph # (Auto) [place] # (Auto) Eos # (Auto) Baso # (Auto) Absolute Neuts (auto) Sodium Potassium Chloride Carbon Dioxide Anion Gap BUN Creatinine Est GFR ( Amer) Est GFR (Non-Af Amer) POC Glucose (mg/dL) Random Glucose Fasting Glucose 92 Calcium Total Bilirubin AST ALT Alkaline Phosphatase Total Protein Albumin Globulin Albumin/Globulin Ratio Triglycerides 65 Cholesterol 127 L LDL Cholesterol Direct 73 HDL Cholesterol 40 TSH 3rd Generation 0.68 Urine Color Urine Appearance Urine pH Ur Specific [place] Urine Protein Urine Glucose (UA) Urine Ketones Urine Blood Urine Nitrate Urine Bilirubin Urine Urobilinogen Ur Leukocyte Esterase Salicylates Urine Opiates Screen Negative Urine Methadone Screen Negative Acetaminophen Ur Barbiturates Screen Negative Ur Phencyclidine Scrn Negative Ur Amphetamines Screen Negative U Benzodiazepines Scrn Negative U Oth Cocaine Metabols Negative U Cannabinoids Screen Positive H Alcohol, Quantitative RPR 02/05/19 07:00 WBC RBC Hgb Hct MCV MCH MCHC RDW Plt Count MPV Neut % (Auto) Lymph % (Auto) [place] % (Auto) Eos % (Auto) Baso % (Auto) Lymph # (Auto) [place] # (Auto) Eos # (Auto) Baso # (Auto) Absolute Neuts (auto) Sodium Potassium Chloride Carbon Dioxide Anion Gap BUN Creatinine Est GFR ( Amer) Est GFR (Non-Af Amer) POC Glucose (mg/dL) Random Glucose Fasting Glucose Calcium Total Bilirubin AST ALT Alkaline Phosphatase Total Protein Albumin Globulin Albumin/Globulin Ratio Triglycerides Cholesterol LDL Cholesterol Direct HDL Cholesterol TSH 3rd Generation Urine Color Urine Appearance Urine pH Ur Specific [place] Urine Protein Urine Glucose (UA) Urine Ketones Urine Blood Urine Nitrate Urine Bilirubin Urine Urobilinogen Ur Leukocyte Esterase Salicylates Urine Opiates Screen Urine Methadone Screen Acetaminophen Ur Barbiturates Screen Ur Phencyclidine Scrn Ur Amphetamines Screen U Benzodiazepines Scrn U Oth Cocaine Metabols U Cannabinoids Screen Alcohol, Quantitative RPR Nonreactive Consultations:: List each consultation separately and include: 1. Reason for request. 2. Findings. 3. Follow-up Consultations: No consultations Summary of Hospital Course include:: 1. Description of specific treatment plan utilized for patients during their course of treatmen. 2. Summarize the time- course for resolution of acute symptoms and/or regressed behaviors. 3. Describe issues identified and worked on during hospitalization. 4. Describe medication utilized. 5. Describe medical problems identified and treated. 6. Reassessment of suicide risk Summary of Hospital Course: DR. MEDEL'S PROGRESS NOTE 02/07/19 shortly pt is 28-year-old male with a history of mental illness, possible bipolar disorder, chronic noncompliance with meds, f/u appt, pt also has h/o substance use, PCP, pt was brought by ambulance and police for disruptive behavior in community, pt tried to drink the gasolene at the [employer] store and wanted to "explode", while being under the influence of drugs. Patient was seen from the treatment team meeting today, patient presented in manic stage/psychotic. Patient presented with mind racing, laughing inappropriately, thought process is circumstantial/tangential disorganized, pt was making inappropriate jokes, as reported from the nursing staff patient was sexually preoccupied, needs constant redirections, at the same time pt is becoming defensive and irritable very easily, impulses are unpredictable. Patient requested to be discharged as soon as possible, submitted 48-hour notice. Patient meets criteria for [facility] screening because he thinks it is "funny to drink a gasoline to defeat Optimus Prime", pt is psych otic, irritable/manic, sexually preoccupied, pt feels that he is "neighborhood Spiderman". So far patient compliant with her medications, no side effects observed or reported. Patient reported that he is on Haldol Decanoate and injection was sometimes recent. Patient reports that he smokes "too many cigarettes a day," patient asked "give me a gum, you know gum is for chewing." drinks alcohol "here and there.." pt is on probation. DR. ORTEGA'S PROGRESS NOTE 02/08/19 I reviewed assessment and recent notes. Patient placed 48 hour notice yesterday and was seen by [facility] screeners who determined that patient did not meet criteria for involuntary commitment. Patient continues to be delusional, labile and oddly related with scattered thought process. Denies AVH, SI or HI. Aware that he terry l be discharged AMA on his 48 hour letter tomorrow 02/09/19. DISCHARGE NOTE 02/09/19 I interviewed patient in his room and in the hallway prior to patient's discharge. I confirmed that patient is alert and oriented to month, year and circumstances. Eye contact is good. Patient feels improved and denies any suicidal thoughts or thoughts to harm others. Affect is bright, talkative and more related than admission. He was observed reassuring another patient this morning. Patient denies hallucinations and is not responding to internal stimuli. He denies paranoia. Delusions were not elicited. Thought process is improved since admission. Patient feels comfortable with discharge today and denies any new concerns. Denies acute discomfort or pain. Tolerating medications and denies any issues with them. - Final Diagnosis (DSM 5) Condition upon Discharge: IMPROVED DSM 5: Schizophrenia versus schizoaffective disorder Polysubstance abuse Disposition: AGAINST MEDICAL ADVICE Follow-up Treatment Plan: Patient was discharged AMA on his 48 hour letter on 02/09/19. [facility] screeners assessed patient on 02/08/19 and determined that patient did not meet criteria for involuntary commitment. - Smoking Cessation Smoking Cessation Medication prescribed: No Reason for not providing: discharged AMA - Antipsychotic Medications Pt discharged on 2 or more routine antipsychotic medications: No
== END 2019-02-09 10:55 | disposition left against medical advice (07) | DRG 430 ==
LOC: ED 12:49 → ERH 22:09 → PSYC 23:07
PROVIDERS: ADMIT Psychiatry & Neurology Psychiatry; ATTEND Psychiatry & Neurology Psychiatry
DX: F20.9 Schizophrenia, unspecified (principal); F16.90 Hallucinogen use, unspecified, uncomplicated; F31.9 Bipolar disorder, unspecified; F17.210 Nicotine dependence, cigarettes, uncomplicated; Z91.14 Patient's other noncompliance with medication regimen

== ENCOUNTER 2019-02-14 02:04 | Emergency (ER) | payer MEDICAID ==
[2019-02-14 02:04] VITALS: BMI 26.6
[2019-02-14 03:27] VITALS: RESP 18; TEMP 97.6
[2019-02-14 04:14] LABS: BASO # 0.03 K/mm3 (0.0-2.0); BASO % 0.4 % (0.0-3.0); EOS # 0.2 (0.0-0.7); EOS % 2.5 % (1.5-5.0); HEMOGLOBIN 12.7 g/dL (14.0-18.0); LYMPH # 2.8 (1.2-3.4); LYMPH % 41.6 % (22.0-35.0); MEAN CELL VOLUME 87.3 fl (80.0-105.0); MEAN CORPUSCULAR HEMOGLOBIN 27.9 pg (25.0-35.0); MEAN PLATELET VOLUME 9.4 fl (7.0-11.0); MONO # 0.7 (0.1-0.6); MONO % 9.7 % (1.0-6.0); RBC 4.55 10^6/uL (3.5-6.1); WHITE BLOOD COUNT 6.8 10^3/uL (4.5-11.0)
[2019-02-14 04:22] LABS: ACETAMINOPHEN < 10.0 ug/ml (10.0-20.0); SALICYLATE < 1 mg/dL (2.0-20.0)
[2019-02-14 04:40] LABS: ALB/GLOB RATIO 1.3 (1.1-1.8); ALBUMIN 3.7 g/dL (3.0-4.8); ALT/SGPT 38 U/L (7-56); AST/SGOT 35 U/L (17-59); BLOOD UREA NITROGEN 18 mg/dL (7-21); CALCIUM 9.1 mg/dL (8.4-10.5); GFR NON-AFRICAN AMERICAN > 60
[2019-02-14 04:41] LABS: BARBITURATES, UR NEGATIVE (NEGATIVE); BENZODIAZEPINES, UR NEGATIVE (NEGATIVE); OPIATES, UR NEGATIVE (NEGATIVE); PHENCYCLIDINE, UR NEGATIVE (NEGATIVE)
--- NOTE | 2019-02-14 05:32 | ED PDOC ---
Arrival/HPI - General Chief Complaint: Psychiatric Evaluation Time Seen by Provider: 02/14/19 02:06 Historian: Patient, EMS - History of Present Illness Narrative History of Present Illness (Text): 02/14/19 05:29 28 year old male, whose past medical history includes bipolar disorder, presents to the emergency department with hallucinations. Patient states he believes he is "the joker" and that "Matty Herzog" told him to come here. Patient is being uncooperative otherwise. HPI and ROS limited due to patient's uncooperative nature. Time/Duration: Prior to Arrival Symptom Onset: Gradual Symptom Course: Unchanged Activities at Onset: Light Context: Home Past Medical History - Provider Review Nursing Documentation Reviewed: Yes - Infectious Disease Hx of Infectious Diseases: None - Cardiac Hx Cardiac Disorders: No Hx Hypertension: No - Pulmonary Hx Tuberculosis: No - Neurological HX Cerebrovascular Accident: No Hx Seizures: No - HEENT Hx HEENT Disorder: No - Renal Hx Renal Disorder: No - Endocrine/Metabolic Hx Endocrine Disorders: No - Hematological/Oncological Hx Cancer: No - Integumentary Hx Dermatological Disorder: No - Musculoskeletal/Rheumatological Hx Musculoskeletal Disorders: No - Gastrointestinal Hx Gastrointestinal Disorders: No - Genitourinary/Gynecological Hx Sexually Transmitted Diseases: No - Psychiatric Hx Bipolar Disorder: Yes Hx Schizophrenia: Yes Hx Substance Use: Yes - Anesthesia Hx Anesthesia: No Hx Anesthesia Reactions: No Hx Malignant Hyperthermia: No Family/Social History - Physician Review Nursing Documentation Reviewed: Yes Family/Social History: No Known Family HX Smoking Status: Heavy Smoker > 10 Cigarettes Daily Hx Alcohol Use: Yes Hx Substance Use: Yes Substance used: Marijuana Allergies/Home Meds Allergies/Adverse Reactions: Allergies No Known Allergies Allergy (Verified 02/04/19 23:14) Review of Systems - Physician Review All systems were reviewed & negative as marked: Yes - Review of Systems Systems not reviewed;Unavailable: Uncooperative Physical Exam - Physical Exam Physical Exam Limitations: Uncooperative Vital Signs Reviewed: Yes Vital Signs Temp Pulse Resp BP Pulse Ox 02/14/19 05:26 62 18 118/68 98 02/14/19 02:17 97.6 F 60 18 119/57 L 98 Temperature: Afebrile Blood Pressure: Hypotensive Pulse: Regular Respiratory Rate: Normal Appearance: Positive for: Well-Appearing, Non-Toxic, Comfortable Pain Distress: None Mental Status: Positive for: Alert and Oriented X 3 Medical Decision Making ED Course and Treatment: 02/14/19 07:25 patient with hx psychosis presents with hallucinations. patient slept during ED stay. patient is medically stable for psych eval, admit, transfer if needed. - Lab Interpretations Lab Results: Total Bilirubin 0.2 mg/dL (0.2-1.3) 02/14/19 03:56 AST 35 U/L (17-59) 02/14/19 03:56 ALT 38 U/L (7-56) 02/14/19 03:56 Alkaline Phosphatase 46 U/L (38-126) 02/14/19 03:56 Total Protein 6.7 g/dL (5.8-8.3) 02/14/19 03:56 Albumin 3.7 g/dL (3.0-4.8) 02/14/19 03:56 Globulin 3.0 gm/dL 02/14/19 03:56 Albumin/Globulin Ratio 1.3 (1.1-1.8) 02/14/19 03:56 - EKG Interpretation EKG Interpretation (Text): 02/14/19 07:38 ekg my read: nsr at 71 bpm, nml qrs, nml axis, no acute sttw abn Interpreted by ED Physician: Yes - Scribe Statement The provider has reviewed the documentation as recorded by the Scribe Paul Bryan All medical record entries made by the Scribe were at my direction and personally dictated by me. I have reviewed the chart and agree that the record accurately reflects my personal performance of the history, physical exam, medical decision making, and the department course for this patient. I have also personally directed, reviewed, and agree with the discharge instructions and disposition. Disposition/Present on Arrival - Present on Arrival Any Indicators Present on Arrival: No History of DVT/PE: No History of Uncontrolled Diabetes: No Urinary Catheter: No History of Decub. Ulcer: No History Surgical Site Infection Following: None - Disposition Have Diagnosis and Disposition been Completed?: Yes Diagnosis: Schizophrenia Disposition Time: 07:00 Patient Problems: Current Active Problems Problem Status Onset Schizophrenia Acute Condition: STABLE Forms: [employer] (Romanian)
--- NOTE | 2019-02-14 07:54 | ED PDOC ---
Physical Exam Vital Signs Reviewed: Yes Vital Signs Temp Pulse Resp BP Pulse Ox 02/14/19 07:52 51 L 18 118/73 98 02/14/19 05:26 62 18 118/68 98 02/14/19 02:17 97.6 F 60 18 119/57 L 98 Temperature: Afebrile Blood Pressure: Hypotensive Pulse: Regular Respiratory Rate: Normal Appearance: Positive for: Well-Appearing, Non-Toxic, Comfortable Pain Distress: None Mental Status: Positive for: Alert and Oriented X 3 Medical Decision Making ED Course and Treatment: 02/14/19 07:53: Case endorsed to me by Dr. Keita. Patient presents to the emergency department for psychiatric evaluation. Patient pending PES evaluation, reassessment, and disposition. 02/14/19 11:47: Patient is medically cleared. Patient evaluated by PES who state patient can be discharged home and follow up outpatient at [facility]. Patient is in no acute distress. I have discussed the results and plan with the patient, who expresses understanding. Patient in agreement with plan to be discharged home. Patient is stable for discharge. Patient was instructed to follow up with physician or return if symptoms worsen or new concerning symptoms arise. - Lab Interpretations Lab Results: Total Bilirubin 0.2 mg/dL (0.2-1.3) 02/14/19 03:56 AST 35 U/L (17-59) 02/14/19 03:56 ALT 38 U/L (7-56) 02/14/19 03:56 Alkaline Phosphatase 46 U/L (38-126) 02/14/19 03:56 Total Protein 6.7 g/dL (5.8-8.3) 02/14/19 03:56 Albumin 3.7 g/dL (3.0-4.8) 02/14/19 03:56 Globulin 3.0 gm/dL 02/14/19 03:56 Albumin/Globulin Ratio 1.3 (1.1-1.8) 02/14/19 03:56 - Scribe Statement The provider has reviewed the documentation as recorded by the Qasim Alba Provider Scribe Attestation: All medical record entries made by the Scribe were at my direction and personally dictated by me. I have reviewed the chart and agree that the record accurately reflects my personal performance of the history, physical exam, medical decision making, and the department course for this patient. I have also personally directed, reviewed, and agree with the discharge instructions and disposition. Disposition/Present on Arrival - Present on Arrival Any Indicators Present on Arrival: No History of DVT/PE: No History of Uncontrolled Diabetes: No Urinary Catheter: No History of Decub. Ulcer: No History Surgical Site Infection Following: None - Disposition Have Diagnosis and Disposition been Completed?: Yes Diagnosis: Schizophrenia Disposition: HOME/ ROUTINE Disposition Time: 11:53 Condition: GOOD Additional Instructions: Follow up with [facility] outpatient as directed by behavioral medicine. Referrals: [facility] at [facility] [Outside] - Follow up with primary Ne[facility] at [facility] [Outside] - Follow up with primary [facility] [place] [Outside] - Follow up with primary Forms: [email or web address] (Chinese)
[2019-02-14 08:30] VITALS: BP 135/71; PULSE 70; O2SAT 96
--- NOTE | 2019-02-14 17:59 | CARD ---
APPROVED REPORT Date of service: 02/14/2019 EKG Measurement Heart [id number] CO [id number] <Conclusion> Normal sinus rhythm Normal ECG
== END 2019-02-14 11:53 | disposition home or self-care (01) ==
LOC: ED 02:04
DX: F20.9 Schizophrenia, unspecified (principal); F17.210 Nicotine dependence, cigarettes, uncomplicated